=== PATIENT | male | born 1935 | race Caucasian/White ===

== ENCOUNTER 2024-05-03 02:17 | Inpatient (IN) | payer MEDICARE, OTHER, SELFPAY ==
[2024-05-02 21:58] VITALS: BP 167/78; BMI 32.9
[2024-05-02 22:25] LABS: % Basophils 0.3 % (0-2); % Eosinophils 0.1 % (0-6); % Immature Granulocytes 0.8 % (0-0.5); % Lymphocytes 4.7 % (20.5-51.1); % Monocytes 8.1 % (1.7-9.3); Absolute Basophils 0.1 10^3/uL (0-0.2); Absolute Immature Granulocytes 0.2 10^3/uL (0-0.05); Absolute Lymphocytes 0.9 10^3/uL (1.2-3.4); Absolute Monocytes 1.5 10^3/uL (0.1-0.6); Absolute Neutrophils 15.7 10^3/uL (1.4-6.5); Hematocrit 41.6 % (39.0-52.0); Hemoglobin 13.7 g/dL (13.0-18.0); Mean Corp Hgb Conc. 32.9 g/dL (33.0-37.0); Mean Corpuscular Hgb 27.9 pg (27.0-31.0); Mean Corpuscular Volume 84.7 fL (80.0-94.0); Mean Platelet Volume 13.2 fL (7.4-10.4); Nucleated Red Blood Cells % 0 % (-); Platelet Count 180 10^3/uL (130-400); Red Blood Cell Count 4.91 10^6/uL (4.70-6.10); Red Cell Dist. Width 15.5 % (11.5-14.5); White Blood Cell Count 18.2 10^3/uL (4.8-10.8)
[2024-05-02 22:35] LABS: ALT (SGPT) 21 U/L (0-50); AST (SGOT) 23 U/L (17-59); Albumin 3.8 g/dl (3.5-5.0); Alkaline Phosphatase 76 U/L (38-126); Blood Urea Nitrogen 34 mg/dl (9-20); Calcium 9.4 mg/dl (8.4-10.2); Carbon Dioxide 17 mmol/L (22-30); Chloride 106 mmol/L (98-107); Estimated Creatinine Clearance 21 ml/min; Glucose 155 mg/dl (70-99); Potassium 4.8 mmol/L (3.5-5.1); Sodium 138 mmol/L (135-145); Total Bilirubin 1.3 mg/dl (0.2-1.3); Total Protein 6.6 g/dl (6.3-8.2); eGFR 21.17
[2024-05-02 22:43] LABS: NT-proBNP 4540 pg/ml; Troponin I 0.028 ng/ml
--- NOTE | 2024-05-02 22:56 | ED.GENMED ---
History of Present Illness
General
Chief Complaint: Weakness
Time Seen by Provider: 05/02/24 22:04
History of Present Illness
History of Present Illness:
88-year-old male with history of diabetes, hypertension, chronic back pain, retinal issues presenting for generalized weakness. Patient reports prior to arrival he was getting ready for bed in the bathroom. His legs gave out and he fell onto his
knees. Denies loss of consciousness. He had difficulty getting up. Medics were called. When medics arrived, did have an episode of vomiting. Patient notes prior to this episode was in his usual state of health. Does report a mild cough.
Denies any recent fever or sick contacts. Denies chest pain or difficulty breathing. Denies any present abdominal pain. Did have 1 episode of diarrhea. Denies any focal weakness to his legs or arms. Denies additional acute medical complaints
Past History
Past History
ED Past Medical History: Other (Degenerative joint disease, dvt)
Social History
Tobacco: Non-smoker
Alcohol: None
Drug: None
Phy Exam
Physical Exam
Physical Exam:
General: Dry mucous membranes
HEENT: protecting airway, injected sclera to the right eye, however notes chronic from intra ophthalmic injections
Neck: appears supple
CV: Normal heart rate, regular rhythm
Resp: tachypnea with increased work of breathing, lungs clear to auscultation
Abd: Mild distention without any tenderness to palpation
Extremities: No deformities, no swelling, no erythema
Neuro: alert, no focal neurologic deficit
: deferred
Rectal: deferred
Psych: Normal affect
Skin: Intact
Course
Orders/Labs/Results
Orders:
Orders
05/02/24 21:57
Electrocardiogram (*1) Urgent
Reason for Study: Other
Other Reason for Exam: Respiratory Distress
Cardiac Monitoring- Treatment ONCE
EKG- Treatment ONCE
IV Insert/Care/Rem.- Treatment PRN
CR Chest - 2 Views Urgent
Comment:
Reason For Exam: respiratory distress
O2 Therapy [RESP] Urgent
Titrate/Wean O2 to maintain O2 sat greater than (%): 93
Special Instructions: TO MAINTAIN CONTINUOUS O2 SATS >/= 93%
Pulse Ox/cont/shift [RESP] Urgent
Quantity: 1
Special Instructions: continuous pulse ox
05/02/24 22:09
Complete Blood Count/With Diff Urgent
Comprehensive Metabolic Panel Urgent
NT-proBNP Urgent
Troponin I Urgent
05/02/24 22:21
Urinalysis Reflex To Culture Urgent
05/02/24 22:56
0.9% Sodium Chloride 500 ml [Nss] 500 ml IV BOLUS
05/02/24 23:20
COVID-19 Antigen Urgent
Source: Nasal Swab
Lactic Acid Q4H
Comment: CANCEL 2nd LACTIC ACID IF 1st LACTIC ACID IS LESS THAN 2
05/02/24 23:21
Blood Culture Q30M
FELIPE Source: Blood/Venous
Specimen Description:
Blood Culture Q30M
FELIPE Source: Blood/Venous
Specimen Description:
Influenza A+B Rapid Molecular Urgent
FELIPE Source: Nasal Swab
Specimen Description:
05/03/24 03:00
Lactic Acid Q4H
Comment: CANCEL 2nd LACTIC ACID IF 1st LACTIC ACID IS LESS THAN 2
Abnormal Lab Results
05/02/24
22:09
WBC 18.2 H 10^3/uL
(4.8-10.8)
MCHC 32.9 L g/dL
(33.0-37.0)
RDW 15.5 H %
(11.5-14.5)
MPV 13.2 H fL
(7.4-10.4)
Abs Immat Gran (auto) 0.2 H 10^3/uL
(0-0.05)
Absolute Neuts (auto) 15.7 H 10^3/uL
(1.4-6.5)
Absolute Lymphs (auto) 0.9 L 10^3/uL
(1.2-3.4)
Absolute Monos (auto) 1.5 H 10^3/uL
(0.1-0.6)
Immature Gran % 0.8 H %
(0-0.5)
Neutrophils % 86.0 H %
(42.2-75.2)
Lymphocytes % 4.7 L %
(20.5-51.1)
Carbon Dioxide 17 L mmol/L
(22-30)
BUN 34 H mg/dl
(9-20)
Creatinine 2.8 H mg/dL
(0.7-1.3)
Glucose 155 H mg/dl
(70-99)
05/02/24 22:09
05/02/24 22:09
Vital Signs
Initial and Last Documented VS:
Initial Vital Signs
Temp Pulse Resp BP Pulse Ox
99.7 F 73 40 167/78 90
05/02/24 21:58 05/02/24 21:58 05/02/24 21:58 05/02/24 21:58 05/02/24 21:58
Last Documented Vital Signs
Temp Pulse Resp BP Pulse Ox
99.7 F 71 39 167/78 95
05/02/24 21:58 05/02/24 22:30 05/02/24 22:30 05/02/24 21:58 05/02/24 22:53
MDM/Problems Addressed
MDM/Problems Addressed:
88-year-old male with history of hypertension, diabetes, chronic back pain presenting for generalized weakness and fall. Vital signs on arrival significant for tachypnea and low-grade fever.
On exam, patient is generally unwell in appearance, tachypneic, however denying difficulty breathing. Patient reports that he was feeling well today, and then his legs gave out in the bathroom prior to arrival. Denies head injury. Vital signs on
arrival are concerning for possible infectious pathology. Active source being pulmonary, does note cough and does have increased work of breathing. Viral versus bacterial infection is a consideration. Will obtain viral swabs and chest x-ray
imaging. Patient does also note some dysuria, so will obtain urinalysis. EKG obtained, nonischemic, no arrhythmia. Will check electrolyte panel to evaluate for signs of dehydration or electrolyte derangement. No focal neurologic deficits without
concern for central neurologic process at this time.
23:00- Patient with leukocytosis, now meeting SIRS. Will obtain lactic acid and blood cultures. Starting gentle fluid hydration, BNP of almost 5000. Pending chest x-ray imaging.
00:10 -chest x-ray without obvious infiltrate. COVID and flu is negative. Lactic acid within normal limits, at this time without concern for severe sepsis or septic shock. Will continue fluids clinically indicated. Clinically, concern for
pneumonia in the setting of low-grade fever, increased work of breathing, leukocytosis. Will start on antibiotics. Plan for admission.
*EKG
Interpreted by ED Provider?: Yes
EKG Intrepretation Date: 05/02/24
EKG Intrepretation Time: 23:00
Interpretation: normal
Heart Rate: 71
Rate: normal
Rhythm: sinus
[place]: normal axis
Interval: long QT (484)
QRS Pattern: normal QRS
Ischemia: no ischemia
*Critical Care Note
Total Time (30-74mins, 75-104mins- exclusive of procedures): Not Applicable
ED Attending Note
-
Portions of this chart may have been created with voice recognition software.� Occasional wrong word or��sound alike� substitutions may have occurred due to the inherent limitations of voice recognition software.
Discharge Plan
Departure
Prescriptions:
No Action
metformin 500 MG tablet
500 mg PO BID
terazosin 5 MG capsule
5 mg PO HS
glyburide 5 MG tablet
10 mg PO BID
potassium chloride 10 mEq Tablet Extended Release
30 meq PO BID
aspirin 81 mg Tablet,Delayed Release (Dr/Ec)
81 mg PO HS
sotalol 120 MG tablet
120 mg PO BID
omeprazole 20 MG capsule,delayed release(DR/EC)
20 mg PO DAILY
duloxetine 30 mg Capsule,Delayed Release(Dr/Ec)
30 mg PO HS
cholecalciferol (vitamin D3) [Vitamin D3] 50 mcg (2,000 unit) Tablet
50 mcg PO DAILY
atorvastatin 20 mg Tablet
20 mg PO HS
alprazolam 1 mg Tablet
1 mg PO HSPRN PRN (Reason: anxiety/sleep)
amlodipine 2.5 mg Tablet
2.5 mg PO BID
temazepam 30 mg Capsule
30 mg PO HSPRN PRN (Reason: anxiety/sleep)
losartan 100 mg Tablet
100 mg PO DAILY
PreserVision AREDS 4,296 mcg-226 mg-90 mg Capsule
1 cap PO BID
omega 5-sdo-qsl-fish oil [Fish Oil] 1,200 (144-216) mg Capsule
1 cap PO HS
Referrals:
Jarrell Travis MD [Family Provider] -
Interventions
Interventions:
*Risk Screen - Suicide Last Done: 05/02/24 21:58
*General Assessment Last Done: 05/02/24 21:58
*Neglect/Abuse Screening Last Done: 05/02/24 21:58
ED- Fall Risk Assessment Last Done: 05/02/24 22:54
*ED COVID-19 Vaccine History Last Done: 05/02/24 21:58
ED- Cardiac Assessment Last Done: 05/02/24 22:54
ED- Neurological Assessment Last Done: 05/02/24 22:54
ED- Pulmonary Assessment Last Done: 05/02/24 22:53
Discharge Date and Time
Print Language: AZERI
[2024-05-02] MEDS: NSS 500 IV (23:21)
[2024-05-02 23:22] VITALS: BP 160/75
[2024-05-02 23:45] LABS: Lactic Acid 1.9 mmol/L (0.7-2.0)
[2024-05-02 23:55] LABS: COVID-19 Antigen Negative (Negative)
[2024-05-03] VITALS (18 sets, daily range): BP systolic 130–149; BP diastolic 59–98; PULSE 2–97; O2SAT 92; BMI 30.9
[2024-05-03] MEDS: VIBRAMYCIN 100 MG PO ×3 (01:04→21:01)
[2024-05-03] MEDS: ROCEPHIN 1000 MG IV ×2 (01:04→23:38)
--- NOTE | 2024-05-03 01:11 | HPS.HSE ---
Family Physician
-
Family Physician: Jarrell Travis
Chief Complaint
-
Fall and weakness
History of Present Illness
This is a 88-year-old who has a past medical history significant for kri-pdtywwo-oqydoqwit diabetes, hypertension, GERD, BPH presenting to the emergency department with fall and weakness and found to have significant wheezing and shortness of breath.
Patient tells me that he came to the emergency department because he fell while transitioning to the bed this evening. The patient reported that upon falling he was not able to get up and he was brought to the emergency department. He has been
very weak lately. He is unable to tell me for how long.
When examining the patient he did appear to have very high work of breathing and was tachypneic to the high 20s and 30s. Equal he audible wheezes in the room. Patient states that he has been having dyspnea on exertion for some time now. However
family stated that the difficulty with breathing started after a fall today.
He reports history of nonproductive cough. Denies known history of asthma. Denies known history of COPD, did smoke for 20 years but quit several years ago. Patient denies any history of CHF. He denies having any chest pain. He has no known sick
contacts and no recent travel. 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
In the emergency department he was hypertensive with a blood pressure of 167/78, temp was 99.7, he was tachypneic to the 30s, pulse was 71. ECG shows normal sinus rhythm without any acute ST or T wave changes. Troponin was negative. BNP was over
4000. Chest x-ray shows no acute infiltrates. COVID test was negative. Influenza was negative. He had a white count of 15,000, CBC was otherwise unremarkable. Chemistries notable for creatinine of 2.8 which is up from 1.22 years ago. Bicarb
was 17 electrolytes otherwise unremarkable. U/A was positive for LE, WBC and bacteria.
Medical History
Past Medical History
Past Medical History: Reports HTN, Hypercholesterolemia and NIDDM
Additional Past Medical History:
BPH
Past Surgical History: Reports Other
Social History
Tobacco: Former Smoker
Alcohol: None
Drug: None
Family History
Family History: Not pertinent
Allergies / Home Medications
Allergies reflects when Allergies were last updated in [facility].
Home Medications with original date entered in [facility]
Allergy/Medication List:
Allergies
Allergy/AdvReac Type Severity Reaction Status Date / Time
No Known Allergies Allergy Verified 05/02/24 22:08
Home Medications
aspirin 81 mg tablet,delayed release 81 mg PO HS 08/26/21
cholecalciferol (vitamin D3) 50 mcg (2,000 unit) tablet (Vitamin D3) 50 mcg PO DAILY 08/26/21
duloxetine 30 mg capsule,delayed release 30 mg PO HS 08/26/21
glyburide 5 mg tablet 10 mg PO BID 08/26/21
metformin 500 mg tablet 500 mg PO BID 08/26/21
omeprazole 20 mg capsule,delayed release 20 mg PO DAILY 08/26/21
potassium chloride 10 mEq tablet,extended release 30 meq PO BID 08/26/21
sotalol 120 mg tablet 120 mg PO BID 08/26/21
terazosin 5 mg capsule 5 mg PO HS 08/26/21
alprazolam 1 mg tablet 1 mg PO HSPRN PRN anxiety/sleep 05/02/24
amlodipine 2.5 mg tablet 2.5 mg PO BID 05/02/24
atorvastatin 20 mg tablet 20 mg PO HS 05/02/24
losartan 100 mg tablet 100 mg PO DAILY 05/02/24
omega 1-oiy-hdc-fish oil 1,200 mg (144 mg-216 mg) capsule (Fish Oil) 1 cap PO HS 05/02/24
temazepam 30 mg capsule 30 mg PO HSPRN PRN anxiety/sleep 05/02/24
vitamins A,C,A-mpht-itsxao 4,296 mcg-226 mg-90 mg capsule (PreserVision AREDS) 1 cap PO BID 05/02/24
Review of Systems
-
History Source: Patient
Constitutional: Reports No Symptoms
EENT: Reports No Symptoms
Respiratory: Reports Trouble Breathing
Cardiac: Reports No Symptoms
Abdomen/GI: Reports No Symptoms
: Reports No Symptoms
Musculoskeletal: Reports No Symptoms
Skin: Reports No Symptoms
Neurological: Reports No Symptoms
Endocrine: Reports No Symptoms
Hematologic/Lymphatic: Reports No Symptoms
Psych: Reports No Symptoms
Physical Exam
Vital Signs
Vital Signs
Temp Pulse Resp BP Pulse Ox
99.7 F 71 39 167/78 95
05/02/24 21:58 05/02/24 22:30 05/02/24 22:30 05/02/24 21:58 05/02/24 22:53
Physical Exam
General: Well Developed, Well Nourished and Respiratory Distress
HEENT: NormoCephalic, Anicteric, Moist mucous membranes and Atraumatic
Respiratory: Wheezes and Accessory Resp Muscle Use
Cardiac: S1/S2 and Regular Rhythm
Breast: Deferred by me
GI: Soft, Normal Bowel Sounds and Distended
Rectal: Deferred by Provider
Genito-urinary: Deferred by me
Musculoskeletal: No Clubbing, No Cyanosis, Edema, Left Lower Extremity (trace) and Edema, Right Lower Extremity (trace)
Skin: Warm
Neuro: AO x 3
Hematologic/Lymphatic: No Lymphadenopathy
Psych: Calm
Laboratory Results
-
05/02/24 22:09
05/02/24 22:09
Laboratory Results
Lactic Acid Cancelled 05/03/24 03:00
Total Bilirubin 1.3 mg/dl (0.2-1.3) 05/02/24 22:09
AST 23 U/L (17-59) 05/02/24 22:09
ALT 21 U/L (0-50) 05/02/24 22:09
Alkaline Phosphatase 76 U/L (38-126) 05/02/24 22:09
Troponin I 0.028 ng/ml 05/02/24 22:09
Data Reviewed
-
Diagnostic Radiology: Image Personally Visualized and interpreted
Medical Tests (Nuc Med, Echo, EKG etc): Image Personally Visualized and interpreted
Lab Data: Labs Reviewed by me
Old Records: Reviewed
Impression/Plan
-
IMPRESSION:
88 y.o male with h/o hypertension presenting to ED after a fall at home. Found to be weak and unable to get up. Here in ED has marked wheezing and respiratory distress without hypoxia. Afebrile, temp 99.7. Xray shows no acute infiltrates. COVID
and Flu negative. Leukocytosis to 18.2. LUIS A on CKd Cr 2.8 up from 1.2 2 years ago. Denies h/o asthma or COPD but former smoker. The wheezing suggests asthma/copd which would be c/w an infectious bronchitis causing weakness. However patient has
been having dyspnea on exertion, has trace ankle edema and elevated BNP so could be cardiac wheeze as well.
PLAN:
1. SOB/Wheezing - Acute bronchitis suspected with COPD exacerbation. Very high work of breathing though not hypoxic.
- admit to imu as may need bipap to reduce wob
- start duonebs now
- then duonebs RTC and albuterol prn wheezing q 2 hours
- solumedrol 125mg x 1 then 40 q 6
- ceftriaxone/doxycycline
- check procalcitionin
- pulmonary consult.
2. UTI - Patient with h/o bph, did not endorse urinary symptoms. However has + u/a
- blood and urine cultures sent
3. LUIS A - Unknown recent baseline but prior creatinine in 2021 was1.2, now 2.8. Straight cath without obvious evidence of urinary retention.
- hold losartan
- reduced sotalol to daily given gfr
- hold metformin
- kidney u/s
- holding iv fluids for now due to concern for chf
- nephrology consult
4. Possible CHF - BNP elevated, ? cardiac wheeze.
- will hold off diuresis pending effect of nebs/steroids given possible luis a
- get echo in am
- no history on indication for sotalol (afib vs vt or svt), obtain more information in am,renal dosing at 120 daily
- cardiology consult
3.HTN
- continue amlodipine
- hold losartan for now
- contnue terazosin
4. DM II
- hold metformin
- continue glipizide and insulin sliding scale
DVT PPX - heparin sq
Code status - full code
--- NOTE | 2024-05-03 01:20 | EDRN ---
Patient data communications software consultant gusman, go in room and patient at end of bed needing to urinate, patient very weak with standing and incredibly short of breath, patient un able to go, back in bed and pulled up in bed, hospitalist at bedside as well with patient
working on admission, informed patient no more getting out of bed as he is too short of breath and too weak.
[2024-05-03] MEDS: VENTOLIN NEBULES 2.5 MG INH ×2 (01:22→01:35)
[2024-05-03] MEDS: SOLU-MEDROL PF 125 MG IV (01:35)
--- NOTE | 2024-05-03 02:20 | EDRN ---
Report to LUCILLE Guzman
[2024-05-03 02:24] LABS: Procalcitonin 0.35 ng/ml (0.0-0.25)
[2024-05-03] MEDS: LASIX 60 MG IV (03:12)
[2024-05-03 03:22] LABS: Urine Albumin 3+ (Neg - Trace); Urine Bilirubin Negative (Negative); Urine Character Slightly Cloudy (Clear); Urine Color Yellow; Urine Glucose Trace (Negative); Urine Ketone Negative (Negative); Urine Leukocyte Trace (Negative); Urine Nitrite Negative (Negative); Urine Occult Blood 1+ (Negative); Urine Urobilinogen Negative (Neg - 1+)
[2024-05-03 03:37] LABS: Urine Granular Cast 0-2 /LPF (0); Urine Squamous Cell 0-2 /LPF (Few)
[2024-05-03 03:38] LABS: Urine Amorphous Seen; Urine Bacteria Many (Negative); Urine White Cell 30-40 /HPF (0-5)
[2024-05-03 03:45] LABS: B.E. -5.4 mmol/L; HCO3 19.2 mmol/L (21-28); O2 Saturation % 96.1 % (94-98); PCO2 34 mmHg (35-48); PO2 75 mmHg (83-108); pH 7.36 (7.35-7.45)
[2024-05-03 04:07] LABS: O2 Therapy 28%
[2024-05-03] MEDS: DUONEB 3 ML INH ×4 (07:16→19:33)
[2024-05-03] MEDS: PULMICORT 0.5 MG INH ×2 (07:16→19:33)
--- NOTE | 2024-05-03 08:02 | CON.PUL ---
Consultation
Consultation Request
Date/Time Consultation Requested: 05/03/2024-7:30 AM
Date/Time Consultation Performed: 05/03/2024-8 AM
Requesting Provider: Hospitalist
Performing Provider: Dr. Phillip
Reason for Consultation: Shortness of breath/COPD
Medical History
-
Chief Complaint: Shortness of breath
History of Present Illness:
88-year-old male former smoking [place] immigrant who has a history of hypertension, hyperlipidemia diabetes and possible COPD presented with shortness of breath, hypertension, tachypnea, leukocytosis felt to have COPD exacerbation-pulmonary
consulted for potential COPD 05/03/2024. Reviewed with ED nursing. Patient received some Lasix and was improved. He continues to be on supplemental oxygen. He currently denies any shortness of breath at rest, chest pain, chest tightness, pleurisy,
chest congestion, productive cough, abdominal pain, leg swelling or focal weakness.
Past Medical History
Past Medical History: None (Hypertension. Hyperlipidemia. Diabetes. Obesity.)
Social History
Tobacco: Former Smoker ([id number] quit 1979)
Alcohol: None
Drug: None
Occupational Exposures: No known asbestos exposure
Environmental Exposures: No known tuberculosis exposure
Family History
Family History: Reviewed & Not Pertinent
Allergies / Home Medications
Allergies
Allergy/AdvReac Type Severity Reaction Status Date / Time
No Known Allergies Allergy Verified 05/02/24 22:08
Home Medications
�Medication �Instructions �Recorded �Confirmed �Last Taken �Type
aspirin 81 mg tablet,delayed 81 mg PO HS 08/26/21 05/02/24 Unknown History
release
cholecalciferol (vitamin D3) 50 50 mcg PO DAILY 08/26/21 05/02/24 Unknown History
mcg (2,000 unit) tablet (Vitamin
D3)
duloxetine 30 mg capsule,delayed 30 mg PO HS 08/26/21 05/02/24 Unknown History
release
glyburide 5 mg tablet 10 mg PO BID 08/26/21 05/02/24 Unknown History
metformin 500 mg tablet 500 mg PO BID 08/26/21 05/02/24 Unknown History
omeprazole 20 mg capsule,delayed 20 mg PO DAILY 08/26/21 05/02/24 Unknown History
release
potassium chloride 10 mEq 30 meq PO BID 08/26/21 05/02/24 Unknown History
tablet,extended release
sotalol 120 mg tablet 120 mg PO BID 08/26/21 05/02/24 Unknown History
terazosin 5 mg capsule 5 mg PO HS 08/26/21 05/02/24 Unknown History
alprazolam 1 mg tablet 1 mg PO HSPRN PRN anxiety/sleep 05/02/24 05/02/24 Unknown History
amlodipine 2.5 mg tablet 2.5 mg PO BID 05/02/24 05/02/24 Unknown History
atorvastatin 20 mg tablet 20 mg PO HS 05/02/24 05/02/24 Unknown History
losartan 100 mg tablet 100 mg PO DAILY 05/02/24 05/02/24 Unknown History
omega 8-fng-hpm-fish oil 1,200 mg 1 cap PO HS 05/02/24 05/02/24 Unknown History
(144 mg-216 mg) capsule (Fish Oil)
temazepam 30 mg capsule 30 mg PO HSPRN PRN anxiety/sleep 05/02/24 05/02/24 Unknown History
vitamins A,C,L-nosw-tyirrl 4,296 1 cap PO BID 05/02/24 05/02/24 Unknown History
mcg-226 mg-90 mg capsule
(PreserVision AREDS)
Review of Systems
-
Unable to Obtain full review of systems at this time due to: Other (Per HPI)
Vitals / Labs / Diagnostic Testing
Vital Signs
Temp Pulse Resp BP Pulse Ox
100.0 F 71 18 142/88 98
05/03/24 01:45 05/03/24 07:20 05/03/24 07:20 05/03/24 06:00 05/03/24 07:20
Lab Data
05/02/24 22:09
Laboratory Results
05/03/24
03:35
pH 7.36
pCO2 34 L
pO2 75 L
HCO3 19.2 L
O2 Delivery Level 28%
Microbiology
05/02/24 23:21 Nasal Swab Influenza Types A & B (THIERRY) - Final
Negative for Influenza A & B, NAAT
Negative results must be combined with clinical observations
and patient history.
Nucleic Acid Amplification test (NAAT)performed on the
[employer] platform.
Diagnostic Testing:
Physical Exam
-
Exam:
Well-nourished and well-developed in no apparent distress
HEENT-atraumatic, normocephalic
Neck-supple, no JVD, no bruit
Heart-regular rate and rhythm-no murmurs, rubs or gallops
Chest with diminished breath sounds, mildly prolonged expiratory time, rare basilar crackle right greater than left and few forced wheezes
Back-no tenderness
Abdomen-soft, nontender, nondistended, no hepatosplenomegaly
Extremities-no cyanosis, clubbing, edema and good peripheral pulses
Integument-intact, no rashes, lesions or ecchymosis
Neurology-alert and oriented, nonfocal motor and sensory exam
Assessment
-
88-year-old male former smoking [place] immigrant who has a history of hypertension, hyperlipidemia diabetes and possible COPD presented with shortness of breath, hypertension, tachypnea, leukocytosis felt to have COPD exacerbation-pulmonary
consulted for potential COPD 05/03/2024.
COPD suspected with acute exacerbation
Bronchitis
UTI
LUIS A
Suspected CHF-EF unknown
Leukocytosis
Hyperglycemia
Conditions present prior to admission:
Hypertension.
Hyperlipidemia.
Diabetes.
Obesity.
Plan
Acute decompensation likely a combination of COPD and possibly CHF
Supplemental oxygen as needed
Aspiration precautions
Decadron 6 mg given in the ED-observe off steroids
DuoNebs
Mucolytic's
Check cultures
Empiric antibiotics-Rocephin and doxycycline initiated
Diuresis as tolerated
Monitor renal function, electrolytes, intake/output, lower extremity edema and weight
Replace electrolytes as needed
Check echocardiogram
Nephrology consultation pending
Monitor blood sugar
Insulin supplementation as needed
DVT prophylaxis-on subcu heparin
GI prophylaxis-on pantoprazole
Nutrition
Early mobilization
At risk for obstructive sleep apnea-consider workup
Reviewed with nursing
Diagnostic data:
Chest x-ray 05/02/2024-mild cardiomegaly, mild subpleural subsegmental atelectasis at the lower lobes
Data Reviewed
-
EKG: Report reviewed by me
Radiology: Image personally visualized and interpreted and Report reviewed by me
Medical Tests (Nuc Med, Echo etc): Report reviewed by me
Labs: Labs reviewed by me
Old Records: Reviewed
Total Time Spent with Patient (in minutes): 55
[2024-05-03 09:54] LABS: Glucose - Point of Care 187 mg/dl (70-99)
[2024-05-03] MEDS: NOVOLOG FLEXPEN-LOW RESISTANCE 1 UNITS SC (10:20)
[2024-05-03] MEDS: HEPARIN 5000 UNITS SC ×3 (10:20→23:38)
[2024-05-03] MEDS: MICRONASE 10 MG PO (10:21)
[2024-05-03] MEDS: MUCINEX 600 MG PO ×2 (10:21→21:01)
[2024-05-03] MEDS: BETAPACE 120 MG PO (10:21)
[2024-05-03] MEDS: PROTONIX 40 MG PO (10:21)
[2024-05-03] MEDS: NORVASC 2.5 MG PO ×2 (10:24→21:01)
[2024-05-03 12:29] LABS: Blood Urea Nitrogen 44 mg/dl (9-20); Calcium 8.9 mg/dl (8.4-10.2); Carbon Dioxide 18 mmol/L (22-30); Chloride 105 mmol/L (98-107); Estimated Creatinine Clearance 19 ml/min; Glucose 258 mg/dl (70-99); Potassium 5.2 mmol/L (3.5-5.1); Sodium 137 mmol/L (135-145); eGFR 18.74
[2024-05-03] MEDS: NOVOLOG FLEXPEN-LOW RESISTANCE 3 UNITS SC (13:19)
[2024-05-03] MEDS: LOKELMA 10 GRAM PO (14:04)
--- NOTE | 2024-05-03 16:48 | W.CON.NEPH ---
Consultation
-
Date/Time Consultation Requested: 05/03/24 0114
Date/Time Consultation Performed: 05/03/24 1700
Requesting Provider: Fabian Salas
Performing Provider: Malka Shaffer
Reason for Consultation: LUIS A
Medical History
-
Chief Complaint: fall and SOB
History of Present Illness:
88-year-old who is [place] immigrant with h/o HTN on Amlodipine, Losartan, BPH on Terazosin, Heart arrhythmia on Sotalol, HLD on statin, DM on metformn and glyburide, presenting to the emergency department on 05/02 with fall, no loss of consciousness
and found to have significant wheezing and shortness of breath. Patient reportedly had fallen while transitioning to the bed and was noted to have tachypneic and shortness of breath. Family brought him into the ER. He diagnosed with possible
bronchitis and also ?CHF. Started on abx, steroids and nebs. He also received lasix this am. Cr on admit was at 2.8 and repeat was at 3.1. Nephrology consulted to evaluate further.
He reports seeing nephrology at [facility] Dr. Siddiqi for CKD, does not recall creatinine or staging of the disease.
Reports no CP or sob currently, no fever or nausea or vomiting. No diarrhea or abdominal pain. no dysuria. No fever or chills.He denies use of NSAIDs or any new medications.
Past Medical History
HTN, Hypercholesterolemia, obesity, CKD, heart arrhythmia and NIDDM
Social History
Tobacco: Former Smoker (quit )
Alcohol: None
Drug: None
Personal:
Living: With Family
Employment: Retired ( worked as an manufacturing quality engineer)
Family History
no CKD
Family History: Not Pertinent
Allergies / Home Medications
Allergy/AdvReac Type Severity Reaction Status Date / Time
No Known Allergies Allergy Verified 05/02/24 22:08
�Medication �Instructions �Recorded �Confirmed �Type
aspirin 81 mg tablet,delayed 81 mg PO HS 08/26/21 05/02/24 History
release
cholecalciferol (vitamin D3) 50 50 mcg PO DAILY 08/26/21 05/02/24 History
mcg (2,000 unit) tablet (Vitamin
D3)
duloxetine 30 mg capsule,delayed 30 mg PO HS 08/26/21 05/02/24 History
release
glyburide 5 mg tablet 10 mg PO BID 08/26/21 05/02/24 History
metformin 500 mg tablet 500 mg PO BID 08/26/21 05/02/24 History
omeprazole 20 mg capsule,delayed 20 mg PO DAILY 08/26/21 05/02/24 History
release
potassium chloride 10 mEq 30 meq PO BID 08/26/21 05/02/24 History
tablet,extended release
sotalol 120 mg tablet 120 mg PO BID 08/26/21 05/02/24 History
terazosin 5 mg capsule 5 mg PO HS 08/26/21 05/02/24 History
alprazolam 1 mg tablet 1 mg PO HSPRN PRN anxiety/sleep 05/02/24 05/02/24 History
amlodipine 2.5 mg tablet 2.5 mg PO BID 05/02/24 05/02/24 History
atorvastatin 20 mg tablet 20 mg PO HS 05/02/24 05/02/24 History
losartan 100 mg tablet 100 mg PO DAILY 05/02/24 05/02/24 History
omega 4-jrk-oxz-fish oil 1,200 mg 1 cap PO HS 05/02/24 05/02/24 History
(144 mg-216 mg) capsule (Fish Oil)
temazepam 30 mg capsule 30 mg PO HSPRN PRN anxiety/sleep 05/02/24 05/02/24 History
vitamins A,C,T-pfbb-wmblcu 4,296 1 cap PO BID 05/02/24 05/02/24 History
mcg-226 mg-90 mg capsule
(PreserVision AREDS)
Review of Systems
-
All complete 12 point ROS have been inquired and found negative other than stated in HPI
Physical Exam
Vital Signs
Vital Signs
Temp Pulse Resp BP Pulse Ox
98.2 F 57 16 138/77 95
05/03/24 13:47 05/03/24 15:26 05/03/24 15:26 05/03/24 13:16 05/03/24 15:26
Lab Results
WBC 18.2 10^3/uL (4.8-10.8) H 05/02/24 22:09
RBC 4.91 10^6/uL (4.70-6.10) 05/02/24 22:09
Hgb 13.7 g/dL (13.0-18.0) 05/02/24 22:09
Hct 41.6 % (39.0-52.0) 05/02/24 22:09
Plt Count 180 10^3/uL (130-400) 05/02/24 22:09
Sodium 137 mmol/L (135-145) 05/03/24 11:43
Potassium 5.2 mmol/L (3.5-5.1) H 05/03/24 11:43
Chloride 105 mmol/L (98-107) 05/03/24 11:43
Carbon Dioxide 18 mmol/L (22-30) L 05/03/24 11:43
BUN 44 mg/dl (9-20) H 05/03/24 11:43
Creatinine 3.1 mg/dL (0.7-1.3) H 05/03/24 11:43
eGFR 18.74 05/03/24 11:43
Glucose 258 mg/dl (70-99) H 05/03/24 11:43
Calcium 8.9 mg/dl (8.4-10.2) 05/03/24 11:43
Rfi-J-Rqwdyzwnsjs Pept 4540 pg/ml 05/02/24 22:09
Albumin 3.8 g/dl (3.5-5.0) 05/02/24 22:09
echo:
CONCLUSIONS
Normal left ventricular size, wall thickness and systolic function. No regional
wall motion abnormalities are seen. LV ejection fraction is 60-65% by Heath's
method of discs. Diastolic function indeterminate.
Mitral valve opens normally. Mitral annular calcification. Mild mitral
regurgitation.
Mildly dilated left atrium. Indexed LA volume is mildly abnormal (35-41 mL/m2).
CXR:
IMPRESSION:
1. Mild cardiomegaly without radiographic evidence for acute pulmonary edema.
2. Mild subpleural subsegmental atelectasis/scarring in the lower lobes.
Physical Exam
General: Awake, Alert, Oriented, AOx3 and No Distress
HEENT: EOMI, Anicteric, Conjunctivae Clear, Dentition Intact, Facial Symmetry and No JVD
Respiratory: Normal Excursion, Nonlabored Respirations and Other ( decreased breath sounds)
Cardiac: S1/S2 and Regular Rate/Rhythm
Breast: Deferred by me
Abdomen: Soft, Nontender and Nondistended
Musculoskeletal: No Cyanosis and No Edema
Skin: No Rash
Neuro: Nonfocal/Grossly Intact
Psych: Mood/afflect pleasant, Insight/judgement good and Appropriate
Data Reviewed
-
Radiology: Report Reviewed by me and Discussed with Patient
Labs: Labs Reviewed by me and Discussed with Patient
Assessment/Plan
-
IMP:
Acute bronchitis suspected with COPD exacerbation
Possible CHF
LUIS A with CKD 3-follows with the nephrology at [facility] Dr Siddiqi
Mild hyperkalemia
Non gap met acidosis
UTI
h/o bph
HTN
DM II
Plan:
A/w fall, noted acute bronchitis and +/-CHF
LUIS A-last cr was at 1.2 in 2021, no recent labs available, cr now upto 3.1
UA -UTI sample, check renal US and follow bladder scan with h/o BPH, check U lytes
avoid nephrotoxins , dose meds renally -holding metformin and ARB
Mild hyperkalemia noted he is on potassium supplements, hold. Status post [facility]
obtain records from his nephrology
BP stable , back on home medications amlodipine
Pt on Sotalol with a history of heart arrhythmia, cardiology likely at [facility]
mild metabolic acidosis monitor, consider adding sodium bicarbonate if persists tomorrow
I am not sure sure if he has any CHF especially in the absence of JVD, normal EF though his BNP is elevated with LUIS A
Continue antibiotic per primary team and pulmonary
Discussed with the patient in detail
The emergent indication of dialysis, reviewed with the patient possibility of high risk if renal function worsens
[2024-05-03 18:45] LABS: Urine Sodium 20 mmol/L (30-90)
[2024-05-03 18:55] LABS: Glucose - Point of Care 72 mg/dl (70-99)
[2024-05-03] MEDS: NOVOLOG FLEXPEN-LOW RESISTANCE SC (19:00)
[2024-05-03] MEDS: MICRONASE PO (19:09)
[2024-05-03 20:29] LABS: Urine Protein > 2000 mg/dl (0-12)
[2024-05-03] MEDS: LIPITOR PO (21:01)
[2024-05-03] MEDS: ASPIR LOW (ENTERIC COATED) 81 MG PO (21:01)
[2024-05-03] MEDS: LIPITOR 20 MG PO (21:10)
--- NOTE | 2024-05-03 21:11 | EDRN ---
Patient given night time dose of atorvastatin. Patient states that he only takes 10mg, 20mg is ordered. Patient refused to take the full 20mg as ordered. This RN went over his med rec and told him that he did indeed take 20mg at home. Patient still
requested to only take 10mg, 10mg given.
[2024-05-03] MEDS: CYMBALTA DELAYED RELEASE 30 MG PO (23:34)
[2024-05-03] MEDS: HYTRIN 5 MG PO (23:34)
[2024-05-03] MEDS: STERILE WATER FOR INJECTION 10 ML IV (23:38)
[2024-05-04] VITALS (11 sets, daily range): BP systolic 113–157; BP diastolic 62–99
--- NOTE | 2024-05-04 01:18 | PTCARENOTE ---
Rec'd pt from previous RN. Pt alert, but confused at times, forgetful. Pt set off bed alarm, but was unable to tell this RN what he needed. Pt redirected into bed. Pt did not want to take SC heparin d/t not taking this medication at home. This RN
educated pt on purpose of medication and pt was ultimately agreeable to receiving this dose, but states he does not want to take it tomorrow. Pt took oral meds whole with water without complication. Frequently removes monitoring equipment, but
states he is agreeable to wearing it. Call gusman within reach. Bed alarm in place for pt safety.
[2024-05-04 05:47] LABS: Hematocrit 38.5 % (39.0-52.0); Hemoglobin 12.4 g/dL (13.0-18.0); Mean Corp Hgb Conc. 32.2 g/dL (33.0-37.0); Mean Corpuscular Hgb 27.8 pg (27.0-31.0); Mean Corpuscular Volume 86.3 fL (80.0-94.0); Mean Platelet Volume 12.6 fL (7.4-10.4); Platelet Count 168 10^3/uL (130-400); Red Blood Cell Count 4.46 10^6/uL (4.70-6.10); Red Cell Dist. Width 15.4 % (11.5-14.5); White Blood Cell Count 14.4 10^3/uL (4.8-10.8)
[2024-05-04 06:13] LABS: Blood Urea Nitrogen 55 mg/dl (9-20); Calcium 8.7 mg/dl (8.4-10.2); Carbon Dioxide 21 mmol/L (22-30); Chloride 107 mmol/L (98-107); Estimated Creatinine Clearance 17 ml/min; Glucose 47 mg/dl (70-99); Potassium 4.3 mmol/L (3.5-5.1); Sodium 138 mmol/L (135-145); eGFR 17.39
--- NOTE | 2024-05-04 06:37 | PTCARENOTE ---
Lab called to alert this RN that blood glucose in AM lab work was 47. Pt remains asymptomatic, presents same as previous. Juice given per JUN. Will recheck per protocol.
[2024-05-04 06:53] LABS: Glucose - Point of Care 54 mg/dl (70-99)
[2024-05-04 07:29] LABS: Glucose - Point of Care 95 mg/dl (70-99)
[2024-05-04] MEDS: PULMICORT 0.5 MG INH (07:31)
[2024-05-04] MEDS: DUONEB 3 ML INH ×3 (07:31→15:25)
[2024-05-04 08:25] LABS: Glucose - Point of Care 121 mg/dl (70-99)
[2024-05-04] MEDS: NOVOLOG FLEXPEN-LOW RESISTANCE SC ×3 (09:27→17:49)
[2024-05-04] MEDS: VIBRAMYCIN 100 MG PO (10:10)
[2024-05-04] MEDS: PROTONIX PO (10:10)
[2024-05-04] MEDS: HEPARIN SC ×2 (10:10→16:24)
[2024-05-04] MEDS: MUCINEX PO (10:10)
[2024-05-04] MEDS: NORVASC 2.5 MG PO ×2 (10:10→19:56)
--- NOTE | 2024-05-04 10:10 | W.PN.PUL.V3 ---
Today's Communication / Plan
-
Follow blood cultures
Antibiotics
Nebulizers
Observe off steroids
Wean FiO2
Nephrology following worsening renal function
Assessment
-
88-year-old male former smoking Irish immigrant who has a history of hypertension, hyperlipidemia diabetes and possible COPD presented with shortness of breath, hypertension, tachypnea, leukocytosis felt to have COPD exacerbation-pulmonary
consulted for potential COPD 05/03/2024.
COPD suspected with acute exacerbation
Bronchitis
Enterococcal bacteremia
UTI
LUIS A
Suspected CHF-EF unknown
Leukocytosis
Hyperglycemia
Conditions present prior to admission:
Hypertension.
Hyperlipidemia.
Diabetes.
Obesity.
Plan
Acute decompensation likely a combination of COPD and possibly CHF
Supplemental oxygen as needed-currently on 1 L - 97% saturation
Aspiration precautions
Decadron 6 mg given in the ED-observe off steroids
DuoNebs continue
Budesonide nebulizers continue
Mucolytic's
Cultures reviewed
Blood cultures 05/02/2024 2/2 positive for Enterococcus species
Influenza negative
Urine culture pending
Empiric antibiotics-Rocephin and doxycycline initiated
Diuresis if tolerated
Monitor renal function, electrolytes, intake/output, lower extremity edema and weight
Replace electrolytes as needed
Echocardiogram 05/03/2024-EF 60-65%, intermediate diastolic dysfunction
Nephrology consultation reviewed-correspondence reviewed-renal function worsening
Monitor blood sugar
Insulin supplementation as needed
DVT prophylaxis-on subcu heparin
GI prophylaxis-on pantoprazole
Nutrition
Increase activity
At risk for obstructive sleep apnea-consider workup as an outpatient
Reviewed with nursing
Diagnostic data:
Chest x-ray 05/02/2024-mild cardiomegaly, mild subpleural subsegmental atelectasis at the lower lobes
Subjective Data
-
Date of Service:
Date of Service: May 04, 2024
Chief Complaint: Pulmonary Follow Up and Dyspnea Follow Up
Subjective:
Feels a little better, mild shortness of breath, still on oxygen, no chest pain, productive cough or abdominal pain
Review of Systems
General: Other (Per HPI)
Objective Data
Data Reviewed
Vital Signs / I&O:
Vital Signs
Temp Pulse Resp BP Pulse Ox
97.3 F 68 18 124/70 95
05/04/24 07:53 05/04/24 07:34 05/04/24 07:34 05/04/24 04:00 05/04/24 07:34
Intake and Output
05/03/24 05/04/24 05/05/24
06:59 06:59 06:59
Output Total 150 / 150 200 / 200
Balance -150 / -150 -200 / -200
SaO2: 95
Nasal Cannula flow liters per minute: 1
Physical Exam
General: Respiratory Distress (n) and Comfortable
HEENT: Normocephalic and Anicteric
Cardiovascular: Regular Rhythm
Respiratory: Wheeze, Crackles, Rhonchi (n), Non-Labored Respirations, Accessory Resp Muscle Use (n) and Stridor
GI: Soft, Non Distended and Non Tender
Neurology: Awake, Alert and No Motor Deficits
Skin: Warm, Good Color, Cyanosis (n) and Jaundice (n)
Labs/Micro/Reports
Lab Data
05/04/24 05:25
05/04/24 05:25
Microbiology
05/02/24 23:21 Blood/Venous Blood Culture - Preliminary
Enterococcus species
05/02/24 23:21 Blood/Venous Gram Stain - Final
05/02/24 23:21 Blood/Venous Blood Culture - Preliminary
Enterococcus species
05/02/24 23:21 Blood/Venous Gram Stain - Preliminary
05/02/24 23:21 Nasal Swab Influenza Types A & B (THIERRY) - Final
Negative for Influenza A & B, NAAT
Negative results must be combined with clinical observations
and patient history.
Nucleic Acid Amplification test (NAAT)performed on the
[employer] platform.
[2024-05-04] MEDS: MICRONASE 10 MG PO (10:11)
[2024-05-04] MEDS: BETAPACE 120 MG PO (10:11)
--- NOTE | 2024-05-04 10:32 | PTCARENOTE ---
Pt extremely particular regarding medications. Refused Heparin injection despite being educated at length by this RN. Refused Heparin, Mucinex and Protonix. notified.
--- NOTE | 2024-05-04 11:06 | PTCARENOTE ---
Pt for 24/hr urine collection. Pt educated on test. Voiding in urinal but spills at times. Dr. Grant notified.
--- NOTE | 2024-05-04 11:07 | PTCARENOTE ---
Pt's at bedside. Requesting update from Dr Ray and requesting phone call to her daughter by Dr. Grant. Both physicians notified via TT.
[2024-05-04 11:31] LABS: Glucose - Point of Care 85 mg/dl (70-99)
[2024-05-04] MEDS: AMPICILLIN 108 MG IV ×2 (13:02→19:55)
--- NOTE | 2024-05-04 13:53 | W.PN.NEPH.PH ---
Addendum entered and electronically signed by Malka Grant MD 05/04/24 16:27:
spoke with daughter on phone and updated regarding renal status
reviewed potential etiologies
noted that he is bacteremia and UTI with enterococcus
await for serologies, hold ASA just in case if he needs biopsy
d/w primary too
repeat US if cr still increasing to f/u left hydro
Original Note:
Today's Communication / Plan
-
see plan
Assessment/Plan
-
IMP:
Acute bronchitis suspected with COPD exacerbation
Possible CHF
LUIS A with CKD 3-follows with the nephrology at [facility] Dr Siddiqi
Mild hyperkalemia
Non gap met acidosis
UTI
h/o bph
HTN
DM II
Plan:
A/w fall, noted acute bronchitis and +/-CHF
LUIS A-last cr was at 1.2 in 2021, no recent labs available, cr now upto 3.3
UA -UTI sample,borderline left hydro on renal US and follow bladder scan with h/o BPH, bladder scan 99cc
Urine lab shows significant proteinuria unable to calculate, check 24-hour urine protein, also send serologies, paraprotein workup
avoid nephrotoxins , dose meds renally -holding metformin and ARB
Mild hyperkalemia improving, holding potassium supplements
await records from his nephrology
BP stable , on home medications amlodipine
Pt on Sotalol with a history of heart arrhythmia, cardiology at [facility]
mild metabolic acidosis Improving,monitor
I am not sure sure if he has any CHF echo normal EF though his BNP is elevated with LUIS A
Continue antibiotic per primary team and pulmonary
Discussed with the patient in detail
no emergent indication of dialysis, reviewed with the patient possibility of high risk if renal function worsens
-
-
Date of Service: May 04, 2024
CC / HPI / ROS
-
Chief Complaint:
LUIS A
History of Present Illness:
cr up at 3.3, k better 4.3
BP stable, likely non oliguric
no fever, WBC 14k
Review of Systems:
No chest pain or shortness of breath at rest. No nausea or vomiting, denies any dysuria
Labs
-
Labs:
WBC 14.4 10^3/uL (4.8-10.8) H 05/04/24 05:25
RBC 4.46 10^6/uL (4.70-6.10) L 05/04/24 05:25
Hgb 12.4 g/dL (13.0-18.0) L 05/04/24 05:25
Hct 38.5 % (39.0-52.0) L 05/04/24 05:25
Plt Count 168 10^3/uL (130-400) 05/04/24 05:25
Sodium 138 mmol/L (135-145) 05/04/24 05:25
Potassium 4.3 mmol/L (3.5-5.1) 05/04/24 05:25
Chloride 107 mmol/L (98-107) 05/04/24 05:25
Carbon Dioxide 21 mmol/L (22-30) L 05/04/24 05:25
BUN 55 mg/dl (9-20) H 05/04/24 05:25
Creatinine 3.3 mg/dL (0.7-1.3) H 05/04/24 05:25
eGFR 17.39 05/04/24 05:25
Glucose 47 mg/dl (70-99) L* 05/04/24 05:25
Calcium 8.7 mg/dl (8.4-10.2) 05/04/24 05:25
Cuq-F-Rjkvgjknjcn Pept 4540 pg/ml 05/02/24 22:09
Albumin 3.8 g/dl (3.5-5.0) 05/02/24 22:09
Physical Exam
-
Vital Signs:
Vital Signs
Temp Pulse Resp BP Pulse Ox
97.2 F 57 18 132/67 95
05/04/24 11:25 05/04/24 11:17 05/04/24 11:17 05/04/24 10:42 05/04/24 11:17
Cardiovascular:: Regular rate and rhythm
Respiratory:: Bilateral: Coarse
Lung Excursion:: Normal
Abdomen:: Nontender and Soft
Extremity Edema:: None: Bilateral:
Cole Catheter: No
--- NOTE | 2024-05-04 14:51 | CM ---
Congolese/Sudanese speaking patient who fell at home. O2 1L. Receiving IV Abx. PT/OT recommend skilled rehab.
Met with patient and .
fluent in Sudanese and provided answers to assessment questions.
The patient resides with his in a 2nd floor condo with ramp at entrance and elevator access.
The patient has been assisted with ADLs such as showering by his .
He ambulates with his RW and 's supervision.
confirms that the patient fell in the bathroom on 05/02. Prior fall was 8 months ago.
DME - SPC, shower chair
No prior VN or SNF.
PCP - Jarrell Travis at [facility]
Pharmacy - [facility]
Discussed short term SNF for rehab with patient/ and they agree.
Provided SNF list and reviewed ratings for local SNFs.
wishes to discuss SNF choices with her daughter and decide on their SNF preferences.
* says she wants their daughter Brianne to be the primary contact for the MD ---> admitting updated and message sent to Dr Ray.
Plan follow up with daughter/ for SNF preferences.
--- NOTE | 2024-05-04 15:05 | W.PN.HOSP.TC ---
Today's Communication/Plan
-
Change antibiotic to Unasyn
Repeat blood culture in 24 to 48 hours
Follow-up urine studies
Follow-up renal function
Maintain on steroids
Assessment / Plan
Assessment / Plan
1. COPD exacerbation
Acute hypoxic respite insufficiency
-Chest x-ray showing cardiomegaly without evidence of pulmonary edema, some subsegmental atelectasis/scarring
-Maintain patient on IV steroid/inhaler therapy
-Pulmonology following and help appreciated
2. Enterococcal bacteremia and UTI
-Likely from urinary source although patient does not have any significant dysuria
-Urine culture also growing Enterococcus faecalis
-Start patient on IV Unasyn
-Echocardiogram did not show any vegetation
-Will check repeat blood culture for clearance
3. LUIS A
Nephrotic range proteinuria
-Renal/bladder ultrasound did not show any major structural changes
-Creatinine slowly uptrending
-24-hour urine collection with SPEP/UPEP/immunological workup sent as patient felt to have intrinsic renal disease
-Nephrology following and help appreciated
4. Type 2 diabetes mellitus
Episode of hypoglycemia
-Likely with Glyburide use
-Maintain on insulin sliding scale, blood sugar to be expected somewhat uncontrolled with steroid need
5. HF ruled out
-Echocardiogram showing preserved ejection fraction. No signs of significant diastolic dysfunction.
6. Essential HTN
- continue amlodipine
- hold losartan for now
- continue terazosin
DVT PPX - heparin sq
Code status - full code
Patient spouse/daughter updated over the phone. All questions answered.
Care plan discussed with nephrology as well
Total time spent 55 minutes
Anticipated Discharge: > 48 hours
Subjective/Interval History
-
Date of Service: May 04, 2024
patient having some dizziness
remains on o2 through NC
afebrile in night
Hypoglycemic in the morning
Objective Data
-
Labs:
Laboratory Results
05/04/24
05:25
WBC 14.4 H
Hgb 12.4 L
Hct 38.5 L
Plt Count 168
Sodium 138
Potassium 4.3
Chloride 107
Carbon Dioxide 21 L
BUN 55 H
Creatinine 3.3 H
Glucose 47 L*
Calcium 8.7
Vital Signs:
Vital Signs
Temp Pulse Resp BP Pulse Ox
97.2 F 57 18 132/67 95
05/04/24 11:25 05/04/24 11:17 05/04/24 11:17 05/04/24 10:42 05/04/24 11:17
I&O
05/03/24 05/04/24 05/05/24
06:59 06:59 06:59
Output Total 150 / 150 325 / 325
Balance -150 / -150 -325 / -325
Review of Systems
-
Respiratory: Reports Trouble Breathing
Cardiac: Reports No Symptoms
Abdomen/GI: Reports No Symptoms
Neuro: Reports Dizzy
Physical Exam
-
General: No Apparent Distress and Comfortable
HEENT: Oxygen
Respiratory: Wheezes
Cardiac: Regular Rhythm and S1/S2; Negative Murmur or Rub
GI: Soft, Nontender and Nondistended
Musculoskeletal: No Edema
Neuro: Awake, Alert, Oriented, No Motor Deficits and Nonfocal/Grossly Intact
Psych: Calm
[2024-05-04 17:55] LABS: Glucose - Point of Care 49 mg/dl (70-99)
[2024-05-04 18:18] LABS: Glucose - Point of Care 62 mg/dl (70-99)
[2024-05-04 18:38] LABS: Glucose - Point of Care 83 mg/dl (70-99)
--- NOTE | 2024-05-04 19:39 | PTCARENOTE ---
Previous RN alerted this RN that nephro would like us to hold pt's aspirin in case of biopsy, this RN verified that nephro note says to hold aspirin. No order is present to hold med. Dr. Grant contacted via TT to clarify and did certify that this
RN should hold 22:00 dose of aspirin for now, although pt is refusing SC heparin. This RN will reeducate pt on importance of heparin and hold 22:00 dose of aspirin.
[2024-05-04] MEDS: MUCINEX 600 MG PO (19:56)
[2024-05-04] MEDS: DUONEB INH (20:35)
[2024-05-04] MEDS: PULMICORT INH (20:35)
--- NOTE | 2024-05-04 20:40 | PTCARENOTE ---
Addendum entered by Christen Hunt 05/04/24 23:12:
Pt family arrived at bedside and encouraged compliance. Pt continues to refuse blood sugar checks, but is agreeable to drinking apple juice at this time. This RN will continue to encourage juice to ensure adequate sugars since we are unable to
assess d/t refusal. Pt agreeable to wearing O2 at family request, SaO2 94% on 2L. Pt agreeable to receiving heparin SC at this time. Pt's stated she will stay here overnight to assist with pt compliance. Pt agitated when RT, PCT enters the
room, gets overwhelmed easily. This RN will do pt care independently to limit staff contact and alleviate agitation. Call gusman within reach.
Original Note:
Pt refused 20:30 blood sugar check. Pt educated on importance of avoiding hypoglycemia. States 'this is too much. You can come to me during business hours' Reorientation attempted. 4oz juice offered to ensure adequate sugars, pt refused. Pt refusing
RT treatments. Removed O2. Satting 85-88% on RA, refuses this RN to replace O2 at this time. Again, reorientation attempted, importance of oxygenation explained to pt. Pt verbalizes understanding. Eventually places nasal cannula back on. SaO2
improved to 91%.
[2024-05-04] MEDS: LIPITOR PO (21:16)
[2024-05-04] MEDS: ASPIR LOW (ENTERIC COATED) PO (21:16)
[2024-05-04] MEDS: HYTRIN PO (21:20)
[2024-05-04] MEDS: CYMBALTA DELAYED RELEASE PO (21:20)
[2024-05-04] MEDS: HEPARIN 5000 UNITS SC (23:01)
[2024-05-05] VITALS (13 sets, daily range): BP systolic 114–177; BP diastolic 50–119
[2024-05-05] MEDS: DEXTROSE 50% SYRINGE 12.5 GRAMS IV (01:30)
--- NOTE | 2024-05-05 01:37 | PTCARENOTE ---
Pt awoke trying to get OOB, diaphoretic, c/o feeling hot, pulling gown off, O2 dropping to 70s on 2L. This RN pulled pt up in bed, increased O2 to 3L with improvement. Educated pt and family that pt may be feeling symptomatic of low blood sugar. Pt
agreeable to let this RN check blood glucose. BG result 47. Pt has been uncooperative throughout shift. IV dextrose given per JUN. Pt cooperative at this time, agreeable to let this RN recheck sugar in 15 minutes. PAROLE OFFICER notified of event.
[2024-05-05 01:39] LABS: Glucose - Point of Care 47 mg/dl (70-99)
[2024-05-05 02:07] LABS: Glucose - Point of Care 107 mg/dl (70-99)
[2024-05-05] MEDS: DUONEB 3 ML INH ×5 (04:01→20:11)
[2024-05-05 04:10] LABS: Glucose - Point of Care 91 mg/dl (70-99)
[2024-05-05] MEDS: AMPICILLIN 108 MG IV ×3 (04:41→19:58)
--- NOTE | 2024-05-05 04:44 | PTCARENOTE ---
Pt restless, pulling at clothing and monitoring equipment, slouched in bed. Episode of desat to 70s. This RN increased O2 to 6L and placed NRB, pulled pt up in bed. Blood glucose checked, 91. SaO2 recovered to 95%. Lung sounds very diminished. RT
gave breathing treatment with improvement of symptoms. SIPHON OPERATOR notified of episode. No new orders at this time.
[2024-05-05 05:11] LABS: Hematocrit 40.2 % (39.0-52.0); Hemoglobin 13.2 g/dL (13.0-18.0); Mean Corp Hgb Conc. 32.8 g/dL (33.0-37.0); Mean Corpuscular Volume 85.4 fL (80.0-94.0); Mean Platelet Volume 13.1 fL (7.4-10.4); Platelet Count 194 10^3/uL (130-400); Red Blood Cell Count 4.71 10^6/uL (4.70-6.10); Red Cell Dist. Width 14.9 % (11.5-14.5); White Blood Cell Count 13.6 10^3/uL (4.8-10.8)
[2024-05-05 05:36] LABS: Complement C3 141 mg/dl (88-165)
[2024-05-05 05:38] LABS: Blood Urea Nitrogen 54 mg/dl (9-20); Calcium 8.8 mg/dl (8.4-10.2); Carbon Dioxide 22 mmol/L (22-30); Chloride 105 mmol/L (98-107); Estimated Creatinine Clearance 19 ml/min; Glucose 85 mg/dl (70-99); Potassium 4.4 mmol/L (3.5-5.1); Sodium 140 mmol/L (135-145); eGFR 19.49
[2024-05-05] MEDS: PULMICORT 0.5 MG INH ×2 (07:24→20:11)
[2024-05-05 08:17] LABS: Glucose - Point of Care 68 mg/dl (70-99)
[2024-05-05 09:01] LABS: Glucose - Point of Care 94 mg/dl (70-99)
--- NOTE | 2024-05-05 10:08 | PN.CDI ---
CDI
- -
CDI:
Physician Documentation Request
Admit Date: 05/03/24 02:17
Dear Doctor Cory,
Please review the following and provide your response in the progress notes.
Clinical Indicators:
Pt admitted with LUIS A /UTI now Bacteremia
Progress note 05/04, ' Enterococcal bacteremia and UTI Likely from urinary source ...Urine culture also growing Enterococcus faecalis Start patient on IV Unasyn...'
On admission WBC 18.2, Respirations 51, Temp 100.0
Please clarify which of the following most accurately describes the status of the patient's infection:
Sepsis-POA
- Systemic manifestations of infection, with 2 or more SIRS criteria which include:
- Fever >100.4 degrees F or hypothermia < 96.8 degrees F
- Leukocytosis - WBC > 12,000 or leukopenia - WBC < 4,000 or > 10% bands
- Tachycardia > 90 beats per minute
- Tachypnea - RR > 20 breaths per minute or PaCO2 , 32mmHg
Source: Merck Manual 2013
UTI only , Without Systemic Illness
Other ( please specify)
Use of terms such as suspected, likely, concern for, or probable (associated with a specific diagnosis that is being evaluated, monitored, or treated as if it exists) are acceptable and can be coded in the inpatient setting, when documented at the
time of discharge.
Thank you,
Alina Velásquez RN
CDI Specialist
[facility]
Please use your independent medical judgment in providing your response.
[2024-05-05] MEDS: BETAPACE 120 MG PO (10:46)
[2024-05-05] MEDS: NORVASC 2.5 MG PO (10:46)
[2024-05-05] MEDS: NOVOLOG FLEXPEN-LOW RESISTANCE SC ×2 (10:47→16:53)
[2024-05-05] MEDS: HEPARIN 5000 UNITS SC ×2 (10:47→17:19)
[2024-05-05] MEDS: MUCINEX 600 MG PO ×2 (10:47→19:57)
--- NOTE | 2024-05-05 11:56 | W.PN.NEPH.PH ---
Today's Communication / Plan
-
see plan
Assessment/Plan
-
IMP:
Acute bronchitis suspected with COPD exacerbation
Possible CHF
LUIS A with CKD 3-follows with the nephrology at [facility] Dr Siddiqi
Mild hyperkalemia
Non gap met acidosis
UTI
h/o bph
HTN
DM II
Plan:
A/w fall, noted acute bronchitis and +/-CHF
LUIS A-last cr was at 1.2 in 2021, no recent labs available, cr peak at 3.3, today at 3
UA -UTI sample,borderline left hydro on renal US may need to repeat later
follow bladder scan with h/o BPH, bladder scan 99cc
Urine lab shows significant proteinuria unable to calculate, pending 24-hour urine protein, serologies, paraprotein workup
ASA held Day2 for possibility of K biopsy based on pending labs and renal function
avoid nephrotoxins , dose meds renally -holding metformin and ARB
k normal, cont to hold potassium supplements
await records from his nephrology
BP increasing trend, increase amlodipine to 5 BID
Pt on Sotalol with a history of heart arrhythmia, cardiology at [facility]
mild metabolic acidosis Improving,monitor
echo normal EF though his BNP is elevated with LUIS A, no diuresis
Continue antibiotic per primary team for enterococcus bacteremia, UTI-on Unasyn
Discussed with the patient and daughter on phone in detail
no emergent indication of dialysis, reviewed with the patient possibility of high risk if renal function worsens
-
-
Date of Service: May 05, 2024
CC / HPI / ROS
-
Chief Complaint:
LUIS A
History of Present Illness:
cr down to 3,
BP increasing trend, non oliguric
no fever, WBC 13.6k
Review of Systems:
No chest pain or shortness of breath at rest. No nausea or vomiting, denies any dysuria
Labs
-
Labs:
WBC 13.6 10^3/uL (4.8-10.8) H 05/05/24 04:36
RBC 4.71 10^6/uL (4.70-6.10) 05/05/24 04:36
Hgb 13.2 g/dL (13.0-18.0) 05/05/24 04:36
Hct 40.2 % (39.0-52.0) 05/05/24 04:36
Plt Count 194 10^3/uL (130-400) 05/05/24 04:36
Sodium 140 mmol/L (135-145) 05/05/24 04:36
Potassium 4.4 mmol/L (3.5-5.1) 05/05/24 04:36
Chloride 105 mmol/L (98-107) 05/05/24 04:36
Carbon Dioxide 22 mmol/L (22-30) 05/05/24 04:36
BUN 54 mg/dl (9-20) H 05/05/24 04:36
Creatinine 3.0 mg/dL (0.7-1.3) H 05/05/24 04:36
eGFR 19.49 05/05/24 04:36
Glucose 85 mg/dl (70-99) 05/05/24 04:36
Calcium 8.8 mg/dl (8.4-10.2) 05/05/24 04:36
Gkj-S-Ndrqfyinlkb Pept 4540 pg/ml 05/02/24 22:09
Albumin 3.8 g/dl (3.5-5.0) 05/02/24 22:09
Physical Exam
-
Vital Signs:
Vital Signs
Temp Pulse Resp BP Pulse Ox
98.5 F 82 14 166/92 94
05/05/24 07:35 05/05/24 11:25 05/05/24 11:25 05/05/24 06:00 05/05/24 07:26
Cardiovascular:: Regular rate and rhythm
Respiratory:: Bilateral: CTA
Lung Excursion:: Normal
Abdomen:: Nontender and Soft
Extremity Edema:: None: Bilateral: (trace)
Cole Catheter: No
[2024-05-05 12:30] LABS: 24 Hour Urine Total Volume 1100 ml
[2024-05-05 12:41] LABS: Glucose - Point of Care 152 mg/dl (70-99)
[2024-05-05 12:42] LABS: 24 Hour Urine Creatinine 1.162 gm/day (1.0-2.0)
[2024-05-05 12:52] LABS: Urine Protein 389 mg/dl (0-12)
[2024-05-05] MEDS: NOVOLOG FLEXPEN-LOW RESISTANCE 1 UNITS SC (13:00)
--- NOTE | 2024-05-05 14:27 | W.PN.PUL.V3 ---
Today's Communication / Plan
-
.
Attempt to wean oxygen.
Continue ampicillin.
Nebulizers.
And Decadron.
Reviewed with
Assessment
-
88-year-old male former smoking [place] immigrant who has a history of hypertension, hyperlipidemia diabetes and possible COPD presented with shortness of breath, hypertension, tachypnea, leukocytosis felt to have COPD exacerbation-pulmonary
consulted for potential COPD 05/03/2024.
COPD suspected with acute exacerbation
Bronchitis
Enterococcal bacteremia
UTI
LUIS A
Suspected CHF-EF unknown
Leukocytosis
Hyperglycemia
Conditions present prior to admission:
Hypertension.
Hyperlipidemia.
Diabetes.
Obesity.
Plan
Acute decompensation likely a combination of COPD and possibly CHF
Supplemental oxygen as needed-currently on . 4 L-93% saturation
Aspiration precautions
Decadron 6 mg given in the ED-observed subsequently off steroids-reinitiate with increased hypoxemia and some wheezing on exam
DuoNebs continue
Budesonide nebulizers continue
Mucolytic's.
Consider repeat chest x-ray if FiO2 requirements did not decrease
Cultures reviewed
Blood cultures 05/02/2024 2/2 positive for Enterococcus species
Influenza negative
Urine culture -Enterococcus
Empiric antibiotics-Rocephin and doxycycline initiated-changed to ampicillin
Diuresis if tolerated
Monitor renal function, electrolytes, intake/output, lower extremity edema and weight
Replace electrolytes as needed
Echocardiogram 05/03/2024-EF 60-65%, intermediate diastolic dysfunction
Nephrology consultation reviewed-correspondence reviewed-renal function worsening.
No indication for emergent dialysis at this time
Monitor blood sugar
Insulin supplementation as needed
DVT prophylaxis-on subcu heparin
GI prophylaxis-on pantoprazole
Nutrition
Increase activity.
Reviewed with at the bedside
At risk for obstructive sleep apnea-consider workup as an outpatient
Reviewed with nursing
Diagnostic data:
Chest x-ray 05/02/2024-mild cardiomegaly, mild subpleural subsegmental atelectasis at the lower lobes
Subjective Data
-
Date of Service:
Date of Service: May 05, 2024
Chief Complaint: Pulmonary Follow Up and Dyspnea Follow Up
Subjective:
at the bedside, patient continues with some shortness of breath, no complaints of chest pain or abdominal pain
Review of Systems
General: Other (per HPI)
Objective Data
Data Reviewed
Vital Signs / I&O:
Vital Signs
Temp Pulse Resp BP Pulse Ox
98.5 F 82 14 166/92 94
05/05/24 07:35 05/05/24 11:25 05/05/24 11:25 05/05/24 06:00 05/05/24 07:26
Intake and Output
05/04/24 05/05/24 05/06/24
06:59 06:59 06:59
Intake Total 240 / 240 120 / 120
Output Total 150 / 150 825 / 825
Balance -150 / -150 -585 / -585 120 / 120
SaO2: 94
Nasal Cannula flow liters per minute: 5
Physical Exam
General: Respiratory Distress (n) and Comfortable
HEENT: Normocephalic and Anicteric
Cardiovascular: Regular Rhythm
Respiratory: Wheeze, Crackles, Rhonchi (n), Non-Labored Respirations, Accessory Resp Muscle Use (n) and Stridor
GI: Soft, Non Distended and Non Tender
Neurology: Awake, Alert and No Motor Deficits
Skin: Warm, Good Color, Cyanosis (n) and Jaundice (n)
Labs/Micro/Reports
Lab Data
05/05/24 04:36
05/05/24 04:36
Microbiology
01/07/25 02:52 Urine Urine Culture - Preliminary
Enterococcus species
05/02/24 23:21 Blood/Venous Blood Culture - Final
Enterococcus faecalis
05/02/24 23:21 Blood/Venous Gram Stain - Final
05/02/24 23:21 Blood/Venous Blood Culture - Final
Enterococcus faecalis
05/02/24 23:21 Blood/Venous Gram Stain - Final
05/02/24 23:21 Nasal Swab Influenza Types A & B (THIERRY) - Final
Negative for Influenza A & B, NAAT
Negative results must be combined with clinical observations
and patient history.
Nucleic Acid Amplification test (NAAT)performed on the
[employer] platform.
--- NOTE | 2024-05-05 14:58 | W.PN.HOSP.TC ---
Today's Communication/Plan
-
Continue ampicillin
f/u renal function
f/u serological test
Assessment / Plan
Assessment / Plan
1. COPD exacerbation
Acute hypoxic respite insufficiency
-Chest x-ray showing cardiomegaly without evidence of pulmonary edema, some subsegmental atelectasis/scarring
-Maintain patient on IV steroid/inhaler therapy
-Pulmonology following and help appreciated
2. Enterococcal bacteremia and UTI
-Likely from urinary source although patient does not have any significant dysuria
-Urine culture also growing Enterococcus faecalis
-Start patient on IV ampicillin
-Echocardiogram did not show any vegetation
-Repeaet blood cs ordered .
3. LUIS A
Nephrotic range proteinuria
-Renal/bladder ultrasound did not show any major structural changes
-Creatinine donw today. monitor
-24-hour urine collection showing proteinuria with 4.2 g of protein
-UPEP/SPEP/immunology test pending. Complement normal.
-Nephrology following and help appreciated
4. Type 2 diabetes mellitus
Episode of hypoglycemia
-Likely with Glyburide use
-Maintain on insulin sliding scale, blood sugar to be expected somewhat uncontrolled with steroid need
5. HF ruled out
-Echocardiogram showing preserved ejection fraction. No signs of significant diastolic dysfunction.
6. Essential HTN
- continue amlodipine
- hold losartan for now
- continue terazosin
DVT PPX - heparin sq
Code status - full code
Patient daughter updated at bedside
Discussed with nephrology
Total time spent 52 minutes
Anticipated Discharge: > 48 hours
Subjective/Interval History
-
Date of Service: May 05, 2024
Denies having any problems overnight
Remains on oxygen through nasal cannula
No new events
Objective Data
-
Labs:
Laboratory Results
05/05/24
04:36
WBC 13.6 H
Hgb 13.2
Hct 40.2
Plt Count 194
Sodium 140
Potassium 4.4
Chloride 105
Carbon Dioxide 22
BUN 54 H
Creatinine 3.0 H
Glucose 85
Calcium 8.8
Vital Signs:
Vital Signs
Temp Pulse Resp BP Pulse Ox
98.5 F 82 14 166/92 94
05/05/24 07:35 05/05/24 11:25 05/05/24 11:25 05/05/24 06:00 05/05/24 14:27
I&O
05/04/24 05/05/24 05/06/24
06:59 06:59 06:59
Intake Total 240 / 240 120 / 120
Output Total 150 / 150 825 / 825
Balance -150 / -150 -585 / -585 120 / 120
Review of Systems
-
Respiratory: Reports No Symptoms
Cardiac: Reports No Symptoms
Abdomen/GI: Reports No Symptoms
Physical Exam
-
General: No Apparent Distress and Comfortable
HEENT: Oxygen
Respiratory: Wheezes
Cardiac: Regular Rhythm and S1/S2; Negative Murmur or Rub
GI: Soft, Nontender and Nondistended
Musculoskeletal: No Edema
Neuro: Awake, Alert, Oriented, No Motor Deficits and Nonfocal/Grossly Intact
Psych: Calm
--- NOTE | 2024-05-05 15:17 | CM ---
Chart reviewed and recommendation is for skilled placement, egg caser spoke with patient and patient's daughter along with patient's spouse and they have selected [facility], [facility] and [facility], referrals sent for skilled
placement through [facility].
Plan; Skilled placement.
[2024-05-05 15:54] LABS: Glucose - Point of Care 100 mg/dl (70-99)
[2024-05-05 16:59] LABS: Glucose - Point of Care 107 mg/dl (70-99)
[2024-05-05] MEDS: DECADRON 4 MG IV (17:19)
--- NOTE | 2024-05-05 18:36 | PTCARENOTE ---
pt slightly confused this evening with some paranoid behavior. pt stating that hes leaving and attempting to remove tele wires. reassured patient and called daughter whp spoke with pt. pt reoriented. currently in room and pt is calmer. ekg done
this afternoon d/t monitor reeading afib. unspecified rythym on ekg. heart rate in 70s. hospitalist made aware.
[2024-05-05] MEDS: NORVASC 5 MG PO (19:57)
[2024-05-05] MEDS: CYMBALTA DELAYED RELEASE 30 MG PO (19:57)
[2024-05-05] MEDS: LIPITOR 20 MG PO (19:57)
[2024-05-05] MEDS: ASPIR LOW (ENTERIC COATED) 81 MG PO (19:57)
[2024-05-05] MEDS: HYTRIN 5 MG PO (19:58)
[2024-05-05 21:45] LABS: Glucose - Point of Care 183 mg/dl (70-99)
[2024-05-06] VITALS (11 sets, daily range): BP systolic 124–181; BP diastolic 66–105; PULSE 71; BMI 31.0
[2024-05-06] MEDS: HEPARIN SC ×3 (00:30→22:55)
--- NOTE | 2024-05-06 00:44 | PTCARENOTE ---
Addendum entered by Anette Cordova RN 05/06/24 01:14:
Patient also just had a snack brought in by .
Addendum entered by Anette Cordova RN 05/06/24 01:10:
Refusing 3am temperature and blood sugar check, as pt has not slept. Will wait until closer to AM to check temp/blood sugar and cluster care.
Original Note:
Patient and refusing SQ heparin scheduled at 0000. stating kidney doctor does not want patient to have aspirin or blood thinners since they might do a biopsy. This RN did not receive in report and will report off to next shift to clarify.
Pt has not slept, offered cough or sleep medication. Awaiting Temazepam from pharmacy for patient.
[2024-05-06] MEDS: RESTORIL 30 MG PO ×2 (01:05→22:18)
[2024-05-06 02:51] LABS: Glucose - Point of Care 243 mg/dl (70-99)
--- NOTE | 2024-05-06 02:55 | PTCARENOTE ---
bed alarm sounding.. pt sitting up in bed. pt woke up confused without nasal cannula on and without tele lead on. Blood sugar obtained: 243. Pt cleaned and made comfortable in bed. Bed alarm reset. Call gusman within reach. sleeping on sofa couch.
[2024-05-06] MEDS: AMPICILLIN 108 MG IV ×3 (05:12→20:37)
[2024-05-06] MEDS: DECADRON 4 MG IV (05:12)
[2024-05-06 05:41] LABS: Hematocrit 38.8 % (39.0-52.0); Hemoglobin 12.7 g/dL (13.0-18.0); Mean Corp Hgb Conc. 32.7 g/dL (33.0-37.0); Mean Corpuscular Hgb 27.9 pg (27.0-31.0); Mean Corpuscular Volume 85.1 fL (80.0-94.0); Mean Platelet Volume 12.7 fL (7.4-10.4); Platelet Count 188 10^3/uL (130-400); Red Blood Cell Count 4.56 10^6/uL (4.70-6.10); Red Cell Dist. Width 14.7 % (11.5-14.5); White Blood Cell Count 9.6 10^3/uL (4.8-10.8)
[2024-05-06 06:07] LABS: Blood Urea Nitrogen 57 mg/dl (9-20); Calcium 8.6 mg/dl (8.4-10.2); Carbon Dioxide 22 mmol/L (22-30); Chloride 105 mmol/L (98-107); Estimated Creatinine Clearance 22 ml/min; Glucose 231 mg/dl (70-99); Potassium 4.4 mmol/L (3.5-5.1); Sodium 137 mmol/L (135-145); eGFR 23.14
[2024-05-06] MEDS: DUONEB 3 ML INH ×2 (07:19→11:16)
[2024-05-06] MEDS: PULMICORT 0.5 MG INH ×2 (07:19→18:04)
[2024-05-06 09:32] LABS: Glucose - Point of Care 196 mg/dl (70-99)
[2024-05-06] MEDS: BETAPACE 120 MG PO (09:35)
[2024-05-06] MEDS: MUCINEX 600 MG PO ×2 (09:36→20:06)
[2024-05-06] MEDS: NORVASC 5 MG PO ×2 (09:37→20:05)
[2024-05-06] MEDS: NOVOLOG FLEXPEN-MODERATE RESISTANCE 1 UNITS SC ×2 (10:00→18:35)
[2024-05-06] MEDS: NOVOLOG FLEXPEN-LOW RESISTANCE SC (10:02)
--- NOTE | 2024-05-06 10:18 | W.PN.PUL.V3 ---
Today's Communication / Plan
-
Wean oxygen
Increase activity
Steroids discontinued
Nebulizers if needed
Finite course of antibiotics
Pulmonary will sign off-please call with questions
Assessment
-
88-year-old male former smoking [place] immigrant who has a history of hypertension, hyperlipidemia diabetes and possible COPD presented with shortness of breath, hypertension, tachypnea, leukocytosis felt to have COPD exacerbation-pulmonary
consulted for potential COPD 05/03/2024.
COPD suspected with acute exacerbation
Bronchitis
Enterococcal bacteremia
UTI
LUIS A
Suspected CHF-EF unknown
Leukocytosis
Hyperglycemia
Conditions present prior to admission:
Hypertension.
Hyperlipidemia.
Diabetes.
Obesity.
Plan
Acute decompensation likely a combination of COPD and possibly CHF
Supplemental oxygen as needed-currently on 2 L - 93%, was 91% on room air when Dr. Phillip walked in the room 05/06/2024
Wean supplemental oxygen
Assess discharge needs prior to discharge
Aspiration precautions
Decadron 6 mg given in the ED-observed subsequently off steroids-reinitiate with increased hypoxemia and some wheezing on exam-subsequently discontinued due to confusion and wheezing improved 05/06/2024
DuoNebs continue
Budesonide nebulizers continue
Mucolytic's.
Cultures reviewed
Blood cultures 05/02/2024 2/2 positive for Enterococcus species
Influenza negative
Urine culture -Enterococcus
Empiric antibiotics-Rocephin and doxycycline initiated-changed to ampicillin
Diuresis continues if tolerated
Monitor renal function, electrolytes, intake/output, lower extremity edema and weight
Replace electrolytes as needed
Echocardiogram 05/03/2024-EF 60-65%, intermediate diastolic dysfunction
Nephrology consultation reviewed-correspondence reviewed-renal function worsening.
No indication for emergent dialysis at this time
Hold off on renal biopsy per nephrology notes 05/06/2024-likely chronic disease and low yield diagnostically
Monitor blood sugar
Insulin supplementation as needed
DVT prophylaxis-on subcu heparin
GI prophylaxis-on pantoprazole
Nutrition
Increase activity.
Reviewed with as well as nursing at the bedside
At risk for obstructive sleep apnea-consider workup as an outpatient
Respiratory status has improved-wean oxygen, assess discharge supplemental oxygen needs, steroids discontinued, nebulizers as needed-pulmonary will sign off-please call with questions
Diagnostic data:
Chest x-ray 05/02/2024-mild cardiomegaly, mild subpleural subsegmental atelectasis at the lower lobes
Subjective Data
-
Date of Service:
Date of Service: May 06, 2024
Chief Complaint: Pulmonary Follow Up and Dyspnea Follow Up
Subjective:
Some confusion last evening, no complaints of shortness of breath at rest, chest pain or abdominal pain, on room air-91% saturation
Review of Systems
General: Other (Per HPI)
Objective Data
Data Reviewed
Vital Signs / I&O:
Vital Signs
Temp Pulse Resp BP Pulse Ox
98.0 F 61 28 128/84 93
05/06/24 03:00 05/06/24 09:37 05/06/24 08:00 05/06/24 09:37 05/06/24 09:47
Intake and Output
05/05/24 05/06/24 05/07/24
06:59 06:59 06:59
Intake Total 240 / 240 556 / 556 120 / 120
Output Total 825 / 825 325 / 325 175 / 175
Balance -585 / -585 231 / 231 -55 / -55
SaO2: 93
Nasal Cannula flow liters per minute: 2
Physical Exam
General: Respiratory Distress (n) and Comfortable
HEENT: Normocephalic and Anicteric
Cardiovascular: Regular Rhythm
Respiratory: Wheeze, Crackles, Rhonchi (n), Non-Labored Respirations, Accessory Resp Muscle Use (n) and Stridor
GI: Soft, Non Distended and Non Tender
Neurology: Awake, Alert and No Motor Deficits
Skin: Warm, Good Color, Cyanosis (n) and Jaundice (n)
Labs/Micro/Reports
Lab Data
05/06/24 05:31
05/06/24 05:31
Microbiology
05/03/24 02:52 Urine Urine Culture - Preliminary
Enterococcus species
05/02/24 23:21 Blood/Venous Blood Culture - Final
Enterococcus faecalis
05/02/24 23:21 Blood/Venous Gram Stain - Final
05/02/24 23:21 Blood/Venous Blood Culture - Final
Enterococcus faecalis
05/02/24 23:21 Blood/Venous Gram Stain - Final
--- NOTE | 2024-05-06 10:20 | W.PN.NEPH.PH ---
Today's Communication / Plan
-
may restart ASA, I am not in favor of pursuing renal biopsy unless serologies indicate otherwise
ARB remains held in setting of acute kidney injury blood pressure stay
Assessment/Plan
-
IMP:
Acute bronchitis suspected with COPD exacerbation
Possible CHF
LUIS A with CKD 3-follows with the nephrology at [facility] Dr Siddiqi
Mild hyperkalemia
Non gap met acidosis
UTI
h/o bph
HTN
DM II
Plan:
A/w fall, noted acute bronchitis and +/-CHF
LUIS A-last cr was at 1.2 in 2021, no recent labs available, cr peak at 3.3, now down to 2.6 with urine output of 500 cc
UA -UTI sample,borderline left hydro on renal US may need to repeat later
follow bladder scan with h/o BPH, bladder scan 99cc
Urine lab shows significant proteinuria unable to calculate, 24-hour urine protein 4grams , serologies, paraprotein workup
I do not favor following a kidney biopsy at this time, his ultrasound shows chronically damaged kidneys the likelihood of biopsy being helpful is extremely low, if in fact his serologies are indicative of otherwise we can change direction
We can reinitiate aspirin
avoid nephrotoxins , dose meds renally -holding metformin and ARB
k normal, cont to hold potassium supplements
await records from his nephrology, still not here
BP increasing trend, increase amlodipine to 5 BID
Pt on Sotalol with a history of heart arrhythmia, cardiology at [facility]
mild metabolic acidosis Improving,monitor
echo normal EF though his BNP is elevated with LUIS A, no diuresis
Continue antibiotic per primary team for enterococcus bacteremia, UTI-on Unasyn
no emergent indication of dialysis, reviewed with the patient possibility of high risk if renal function worsens
-
-
Date of Service: May 06, 2024
CC / HPI / ROS
-
Chief Complaint:
LUIS A
History of Present Illness:
cr down to 2.6
BP stable off ARB
Review of Systems:
No chest pain or shortness of breath at rest. No nausea or vomiting, denies any dysuria
Labs
-
Labs:
WBC 9.6 10^3/uL (4.8-10.8) 05/06/24 05:31
RBC 4.56 10^6/uL (4.70-6.10) L 05/06/24 05:31
Hgb 12.7 g/dL (13.0-18.0) L 05/06/24 05:31
Hct 38.8 % (39.0-52.0) L 05/06/24 05:31
Plt Count 188 10^3/uL (130-400) 05/06/24 05:31
Sodium 137 mmol/L (135-145) 05/06/24 05:31
Potassium 4.4 mmol/L (3.5-5.1) 05/06/24 05:31
Chloride 105 mmol/L (98-107) 05/06/24 05:31
Carbon Dioxide 22 mmol/L (22-30) 05/06/24 05:31
BUN 57 mg/dl (9-20) H 05/06/24 05:31
Creatinine 2.6 mg/dL (0.7-1.3) H 05/06/24 05:31
eGFR 23.14 05/06/24 05:31
Glucose 231 mg/dl (70-99) H 05/06/24 05:31
Calcium 8.6 mg/dl (8.4-10.2) 05/06/24 05:31
Gvc-B-Mnrgtskapdd Pept 4540 pg/ml 05/02/24 22:09
Albumin 3.8 g/dl (3.5-5.0) 05/02/24 22:09
Physical Exam
-
Vital Signs:
Vital Signs
Temp Pulse Resp BP Pulse Ox
98.0 F 61 28 128/84 93
05/06/24 03:00 05/06/24 09:37 05/06/24 08:00 05/06/24 09:37 05/06/24 10:18
Cardiovascular:: Regular rate and rhythm
Respiratory:: Bilateral: CTA
Lung Excursion:: Normal
Abdomen:: Nontender and Soft
Extremity Edema:: None: Bilateral:
Cole Catheter: No
[2024-05-06] MEDS: NOVOLOG FLEXPEN-MODERATE RESISTANCE 3 UNITS SC (12:40)
[2024-05-06 12:47] LABS: Glucose - Point of Care 229 mg/dl (70-99)
--- NOTE | 2024-05-06 12:50 | CON.ID ---
Consultation
-
Date/Time Consultation Requested: 05/06/24 9:13
Date/Time Consultation Performed: 05/06/24 12:50
Requesting Provider: Dr Ray
Performing Provider: Dr Laura
Reason for Consultation: eneteroccocus bacteremia
Chief Complaint / Past History
Chief Complaint
Fall and weakness
History of Present Illness
Mr Streeter is an 88 year old male with history of DM2, BPH who presented here 05/03 for fall, weakness, wheezing and shortness of breath. Patient fell when getting into bed and was then brought to the ER. No known history of CHF, no chest pain. No
sick contacts or travel. Has remote history of DVT now off of anticoagulation.
Since arrival here he has been afebrile, bp stable, WBC initially 18 now 9.6, hgb 12.7, plt 188, L shift was present on arrival and not repeated since, na initially 138, K 4.4, cr initially 2.8 from baseline of 1.2, cr today is 2.6, lactic acid
initially 1.9, procalcitonin 0.35 in the setting of cr 2.8 (not an interpretable test), covid ag negative, renal US: medical renal disease, borderline L hydronephrosis, UA 30-40 wbc/hpf, urine culture 100K e faecalis and blood cultures x2 on arrival
both with E faecalis - amp sensitive, Levaquin sensitive, resistant to tetracyclines, TTE 05/03 no vegetation seen, a blood culture was repeated today, renal biopsy being considered though not favored by nephrology. Assessed as having likely
combincation of COPD and possibly CHF by endodontist. Patient was started on decadron 6 mg in the ER - then observed off an later restarted when wheezing again noted - discontinued due to confused and wheezing improved 05/06/24, was initially on
ceftriaxone and doxycycline switched to ampicillin 05/04 when gpcs in chains/pairs seen in blood culture, qtc 473, ID is consulted for assistance with management. Patient reports no new back pain, doesnt think he has hardwear in the spine but does
recall a remote spinal surgery. No changes in the vision. No new swollen or tender joints. Had some dysuria initially that is now improving.
Past History
Additional Past Medical History:
HTN, Hypercholesterolemia and NIDDM, BPH
Additional Past Surgical History:
'spinal surgery' doesnt think there was metal placed at that time
cholecystectomy
'prostate surgery'
Allergy History:
No Known Allergies Allergy (Verified 05/02/24 22:08)
Medications Reviewed: Yes
Social History
Tobacco: Former Smoker
Alcohol: None
Drug: None
Family History
Family History: Not Pertinent
Review of Systems
Review of Systems
General: Negative Fever or Chills
All systems: All other systems were reviewed and were negative
Vital Signs
Temp Pulse Resp BP Pulse Ox
97.5 F 89 22 164/101 93
05/06/24 11:55 05/06/24 11:19 05/06/24 11:19 05/06/24 10:50 05/06/24 11:19
Physical Exam
Physical Exam
Constitutional: No Acute Distress
Cardiovascular: Regular Rate and S1/S2; Negative Murmur or Rub
Pulmonary: Clear and Symmetric; Negative Wheezes, Rales or Rhonchi
Gastrointestinal: Soft, Non Tender, Non Distended and Normal Bowel Sounds
Genito-Urinary: Negative Suprapubic Tenderness
Extremities: Negative Splinter Hemorrhage or Janeway Lesions
Musculoskeletal: Negative Joint Swelling
Skin: Warm and Dry; Negative Rash or Jaundice
Neurological: Awake
Lab / Diagnostic Study Results
05/06/24 05:31
05/06/24 05:31
Abs Immat Gran (auto) 0.2 10^3/uL (0-0.05) H 05/02/24 22:09
Absolute Neuts (auto) 15.7 10^3/uL (1.4-6.5) H 05/02/24 22:09
Absolute Lymphs (auto) 0.9 10^3/uL (1.2-3.4) L 05/02/24 22:09
Absolute Monos (auto) 1.5 10^3/uL (0.1-0.6) H 05/02/24 22:09
Absolute Basos (auto) 0.1 10^3/uL (0-0.2) 05/02/24 22:09
Immature Gran % 0.8 % (0-0.5) H 05/02/24 22:09
Neutrophils % 86.0 % (42.2-75.2) H 05/02/24 22:09
Lymphocytes % 4.7 % (20.5-51.1) L 05/02/24 22:09
Monocytes % 8.1 % (1.7-9.3) 05/02/24 22:09
Eosinophils % 0.1 % (0-6) 05/02/24 22:09
Basophils % 0.3 % (0-2) 05/02/24 22:09
Lactic Acid Cancelled 05/03/24 03:00
Procalcitonin 0.35 ng/ml (0.0-0.25) H 05/03/24 01:45
Ur Squamous Epith Cells 0-2 /LPF (Few) 05/03/24 02:52
Microbiology Results
Micro:
05/03/24 02:52 Urine Culture - Final
Urine Enterococcus faecalis
05/06/24 05:31 Blood Culture - Pending
Blood/Venous
05/02/24 23:21 Blood Culture - Final
Blood/Venous Enterococcus faecalis
Gram Stain - Final
05/02/24 23:21 Blood Culture - Final
Blood/Venous Enterococcus faecalis
Gram Stain - Final
05/02/24 23:21 Influenza Types A & B (THIERRY) - Final
Nasal Swab Negative for Influenza A & B, NAAT
Negative results must be combined with clinical observations
and patient history.
Nucleic Acid Amplification test (NAAT)performed on the
[employer] NOW platform.
Urine Culture Final 05/06/24-1248
CC: Greater than 100,000 CFU/ML Enterococcus faecalis
Organism 1 Enterococcus faecalis
1. Enterococcus faecalis
M.I.C. RX
--------- ---
Ampicillin <=2 S
Gentamicin Synergy Screen <=500 S
Susceptible result indicates synergy is likely with a cell
wall active agent that is also susceptible
(e.g.ampicillin,penicillin,vancomycin)
Levofloxacin <=1 S
Nitrofurantoin-Urine Only <=32 S
Tetracycline >8 R
Vancomycin 1 S
Assessment / Plan
E faecalis Bacteremia
E faecalis UTI
COPD exacerbation
LUIS A
DM2
- send second set of blood cultures today - would like to see two sets negative at 48 hours prior to finalizing course
- urine culture 100K E faecalis - likely source of bacteremia; UA not consistent with glomerulonephritis to suggest endocarditis
- TTE no vegetations 05/03 after bacteremia began
- agree with ampicillin IV at 2 gm IV q8 hours for present, if blood cultures clear as expected for eventual transition to orals
- QTc 473
- check A1c, recommend tight glucose control
- will follow cultures are clinically
--- NOTE | 2024-05-06 15:23 | W.PN.HOSP.TC ---
Addendum entered and electronically signed by Tulio Ray MD 05/06/24 15:48:
Add on to diagnosis list:
Sepsis - POA - improved
Original Note:
Today's Communication/Plan
-
Transfer MedSurg
Continue antiotic
Follow-up repeat blood culture
ID evaluation
Aspirin resumed
Steroid to be transition to prednisone from tomorrow
Assessment / Plan
Assessment / Plan
1. COPD exacerbation
Acute hypoxic respite insufficiency
-Chest x-ray showing cardiomegaly without evidence of pulmonary edema, some subsegmental atelectasis/scarring
-Pulmonology following and help appreciated
-Case discussed with nephrology biopsy strongly not indicated at this juncture. Will transition patient to oral steroids from tomorrow.
2. Enterococcal bacteremia and UTI
-Likely from urinary source although patient does not have any significant dysuria
-Urine culture also growing Enterococcus faecalis
-Start patient on IV ampicillin
-Echocardiogram did not show any vegetation
-Repeat blood cs ordered . ID consulted for further help
3. LUIS A
Nephrotic range proteinuria
-Renal/bladder ultrasound did not show any major structural changes
-Creatinine donw today. monitor
-24-hour urine collection showing proteinuria with 4.2 g of protein
-UPEP/SPEP/immunology test pending. Complement normal.
-Nephrology following and help appreciated
4. Type 2 diabetes mellitus
Episode of hypoglycemia
-Likely with Glyburide use
-Maintain on insulin sliding scale, blood sugar to be expected somewhat uncontrolled with steroid need
5. HF ruled out
-Echocardiogram showing preserved ejection fraction. No signs of significant diastolic dysfunction.
6. Essential HTN
- continue amlodipine
- hold losartan for now
- continue terazosin
DVT PPX - heparin sq
Code status - full code
spouse at bedside and updated
discussed with nephrology/pulmonology
Total time spent : 52 mins
Anticipated Discharge: 24 - 48 hours
Subjective/Interval History
-
Date of Service: May 06, 2024
remains on o2 through [place]
some back pain reported
no abd pain/nausea/vomiting
Objective Data
-
Labs:
Laboratory Results
05/06/24
05:31
WBC 9.6
Hgb 12.7 L
Hct 38.8 L
Plt Count 188
Sodium 137
Potassium 4.4
Chloride 105
Carbon Dioxide 22
BUN 57 H
Creatinine 2.6 H
Glucose 231 H
Calcium 8.6
Vital Signs:
Vital Signs
Temp Pulse Resp BP Pulse Ox
97.5 F 80 26 155/92 98
05/06/24 11:55 05/06/24 14:00 05/06/24 14:00 05/06/24 14:00 05/06/24 15:05
I&O
05/05/24 05/06/24 05/07/24
06:59 06:59 06:59
Intake Total 240 / 240 556 / 556 120 / 120
Output Total 825 / 825 325 / 325 175 / 175
Balance -585 / -585 231 / 231 -55 / -55
Review of Systems
-
Respiratory: Reports No Symptoms
Cardiac: Reports No Symptoms
Abdomen/GI: Reports No Symptoms
Physical Exam
-
General: No Apparent Distress and Comfortable
HEENT: Oxygen
Respiratory: Wheezes
Cardiac: Regular Rhythm and S1/S2; Negative Murmur or Rub
GI: Soft, Nontender and Nondistended
Musculoskeletal: No Edema
Neuro: Awake, Alert, Oriented, No Motor Deficits and Nonfocal/Grossly Intact
Psych: Calm
[2024-05-06 16:45] LABS: Glucose - Point of Care 151 mg/dl (70-99)
--- NOTE | 2024-05-06 16:49 | PTCARENOTE ---
Patient is out of bed to chair, continent of bowel and bladder. Excellent urine output today, urine is clear and yellow. Patient is eating well. Denying pain when asked. For transfer to room 320 this evening.
[2024-05-06] MEDS: HEPARIN 5000 UNITS SC (16:53)
[2024-05-06] MEDS: MIRALAX 17 GRAMS PO (16:54)
[2024-05-06] MEDS: APRESOLINE 10 MG IV (17:21)
--- NOTE | 2024-05-06 17:25 | CM ---
French/Macanese speaking patient who fell at home. O2 2L. Receiving IV Abx. PT recommends skilled rehab.
SNF referrals reviewed; accepted by [facility].
Spoke with daughter Brianne; she will decide which SNF she prefers and she will let CM know tomorrow.
Plan follow up with patient's daughter for SNF preference.
--- NOTE | 2024-05-06 17:26 | PTCARENOTE ---
Patient blood pressure is 180/81. IV hydralazine administered as per doctors orders. Report given to Silvino ADKINS for transfer to room 320.
[2024-05-06 21:15] LABS: Glucose - Point of Care 155 mg/dl (70-99)
[2024-05-06 21:17] LABS: ANA, IgG Reflex to HEp-2 None Detected (None Detected)
[2024-05-06] MEDS: CYMBALTA DELAYED RELEASE 30 MG PO (22:18)
[2024-05-06] MEDS: ASPIR LOW (ENTERIC COATED) 81 MG PO (22:18)
[2024-05-06] MEDS: LIPITOR 20 MG PO (22:18)
[2024-05-06] MEDS: HYTRIN 5 MG PO (22:20)
[2024-05-07] VITALS (7 sets, daily range): BP systolic 135–190; BP diastolic 67–118; PULSE 58–68; O2SAT 97
[2024-05-07] MEDS: AMPICILLIN 108 MG IV ×3 (05:07→20:42)
[2024-05-07] MEDS: PULMICORT 0.5 MG INH ×2 (07:21→20:01)
[2024-05-07 08:02] LABS: Glucose - Point of Care 162 mg/dl (70-99)
[2024-05-07] MEDS: NOVOLOG FLEXPEN-MODERATE RESISTANCE 1 UNITS SC ×2 (08:15→18:09)
[2024-05-07 08:16] LABS: Blood Urea Nitrogen 57 mg/dl (9-20); Calcium 8.8 mg/dl (8.4-10.2); Carbon Dioxide 26 mmol/L (22-30); Chloride 105 mmol/L (98-107); Estimated Creatinine Clearance 24 ml/min; Glucose 147 mg/dl (70-99); Sodium 141 mmol/L (135-145); eGFR 25.48
[2024-05-07] MEDS: DELTASONE 40 MG PO (08:19)
[2024-05-07] MEDS: MUCINEX 600 MG PO ×2 (08:20→20:43)
[2024-05-07] MEDS: NORVASC 5 MG PO (08:50)
[2024-05-07] MEDS: BETAPACE 120 MG PO (08:51)
[2024-05-07] MEDS: HEPARIN 5000 UNITS SC ×2 (08:52→16:57)
[2024-05-07] MEDS: MIRALAX 17 GRAMS PO (08:56)
[2024-05-07 09:48] LABS: Glycohemoglobin (HgbA1c) 6.2 % (4.0-5.6)
[2024-05-07 11:23] LABS: Myeloperoxidase Antibody 0 AU/mL (0-19); Serine Protease-3, IgG 0 AU/mL (0-19)
[2024-05-07 12:20] LABS: Glucose - Point of Care 264 mg/dl (70-99)
--- NOTE | 2024-05-07 12:27 | W.PN.NEPH.PH ---
Today's Communication / Plan
-
Follow BMP
Add back losartan 25 mg today
Assessment/Plan
-
IMP:
Acute bronchitis suspected with COPD exacerbation
Possible CHF
LUIS A with CKD 3-follows with the nephrology at [facility] Dr Siddiqi (creatinine 1.5 11/17)
Mild hyperkalemia
Non gap met acidosis
UTI
h/o bph
HTN
DM II
Plan:
A/w fall, noted acute bronchitis and +/-CHF
LUIS A-last cr was at 1.2 in 2021, no recent labs available, cr peak at 3.3, now down to 2.4 with urine output of 500 cc
UA -UTI sample,borderline left hydro on renal US may need to repeat later
follow bladder scan with h/o BPH, bladder scan 99cc
Urine lab shows significant proteinuria unable to calculate, 24-hour urine protein 4grams , serologies, paraprotein workup
I do not favor following a kidney biopsy at this time, his ultrasound shows chronically damaged kidneys the likelihood of biopsy being helpful is extremely low, as his serologies are negative
We can reinitiate aspirin
avoid nephrotoxins , dose meds renally -holding metformin and ARB
k normal, cont to hold potassium supplements
await records from his nephrology group, still not here
BP increasing trend, increased amlodipine to 5 BID, will add back lower dose of cozaar today 25mg (usually on 100mg)
Pt on Sotalol with a history of heart arrhythmia, cardiology at [facility]
mild metabolic acidosis Improving,monitor
echo normal EF though his BNP is elevated with LUIS A,
Continue antibiotic per primary team for enterococcus bacteremia, UTI-on Unasyn
no emergent indication of dialysis, previously reviewed with the patient possibility of high risk if renal function worsens
-
-
Date of Service: May 07, 2024
CC / HPI / ROS
-
Chief Complaint:
LUIS A
History of Present Illness:
cr down to 2.4
BP stable elevated ARB
Review of Systems:
No chest pain or shortness of breath at rest. No nausea or vomiting, denies any dysuria
Labs
-
Labs:
WBC 9.6 10^3/uL (4.8-10.8) 05/06/24 05:31
RBC 4.56 10^6/uL (4.70-6.10) L 05/06/24 05:31
Hgb 12.7 g/dL (13.0-18.0) L 05/06/24 05:31
Hct 38.8 % (39.0-52.0) L 05/06/24 05:31
Plt Count 188 10^3/uL (130-400) 05/06/24 05:31
Sodium 141 mmol/L (135-145) 05/07/24 07:22
Potassium 4.0 mmol/L (3.5-5.1) 05/07/24 07:22
Chloride 105 mmol/L (98-107) 05/07/24 07:22
Carbon Dioxide 26 mmol/L (22-30) 05/07/24 07:22
BUN 57 mg/dl (9-20) H 05/07/24 07:22
Creatinine 2.4 mg/dL (0.7-1.3) H 05/07/24 07:22
eGFR 25.48 05/07/24 07:22
Glucose 147 mg/dl (70-99) H 05/07/24 07:22
Calcium 8.8 mg/dl (8.4-10.2) 05/07/24 07:22
Yse-C-Wmuuyllvbuy Pept 4540 pg/ml 05/02/24 22:09
Albumin 3.8 g/dl (3.5-5.0) 05/02/24 22:09
Physical Exam
-
Vital Signs:
Vital Signs
Temp Pulse Resp BP Pulse Ox
98.2 F 63 18 167/79 96
05/07/24 11:00 05/07/24 11:00 05/07/24 11:00 05/07/24 11:00 05/07/24 11:00
Cardiovascular:: Regular rate and rhythm
Respiratory:: Bilateral: CTA
Lung Excursion:: Normal
Abdomen:: Nontender and Soft
Extremity Edema:: None: Bilateral:
Cole Catheter: No
[2024-05-07] MEDS: COZAAR 25 MG PO (12:48)
[2024-05-07] MEDS: NOVOLOG FLEXPEN-MODERATE RESISTANCE 5 UNITS SC (13:08)
--- NOTE | 2024-05-07 13:15 | W.PN.HOSP.TC ---
Today's Communication/Plan
-
adjust BP meds
increase insulin coverage
continue steroids
f/u renal function
rehab placement earliest mon
Assessment / Plan
Assessment / Plan
1. COPD exacerbation
Acute hypoxic respite insufficiency
-Chest x-ray showing cardiomegaly without evidence of pulmonary edema, some subsegmental atelectasis/scarring
-Pulmonology following and help appreciated
-Case discussed with nephrology biopsy strongly not indicated at this juncture. Will transition patient to oral steroids from tomorrow.
2. Enterococcal bacteremia and UTI
-Likely from urinary source although patient does not have any significant dysuria
-Urine culture also growing Enterococcus faecalis
-Echocardiogram did not show any vegetation
-Repeat blood cs neg so far. continue f/u
-ID help appreciated
-continue on ampicillin
3. LUIS A
Nephrotic range proteinuria
-Renal/bladder ultrasound did not show any major structural changes
-Creatinine donw today. monitor
-24-hour urine collection showing proteinuria with 4.2 g of protein
-UPEP/SPEP pending. complement normal. PR3/MPO ab neg.
-Nephrology following and help appreciated
4. Type 2 diabetes mellitus
Episode of hypoglycemia
-hypoglycemia episode Likely with Glyburide use and luis a
-Maintain on insulin sliding scale, blood sugar to be expected somewhat uncontrolled with steroid need
5. HF ruled out
-Echocardiogram showing preserved ejection fraction. No signs of significant diastolic dysfunction.
6. Essential HTN - Uncontrolled
-Currently on regimen of sotalol/losartan/terazosin
-change norvasc to procardia
-As needed hydralazine ordered
DVT PPX - heparin sq
Code status - full code
Anticipated Discharge: > 48 hours
Subjective/Interval History
-
Date of Service: May 07, 2024
Breathing subjectively better
Oxygen requirement is down
No other reported issues overnight
Remains afebrile
Objective Data
-
Labs:
Laboratory Results
05/07/24
07:22
Sodium 141
Potassium 4.0
Chloride 105
Carbon Dioxide 26
BUN 57 H
Creatinine 2.4 H
Glucose 147 H
Calcium 8.8
Vital Signs:
Vital Signs
Temp Pulse Resp BP Pulse Ox
98.2 F 63 18 167/79 96
05/07/24 11:00 05/07/24 12:48 05/07/24 11:00 05/07/24 12:48 05/07/24 11:00
I&O
05/06/24 05/07/24 05/08/24
06:59 06:59 06:59
Intake Total 556 / 556 560 / 560
Output Total 325 / 325 1075 / 1075
Balance 231 / 231 -515 / -515
Review of Systems
-
Respiratory: Reports Cough
Cardiac: Reports No Symptoms
Abdomen/GI: Reports No Symptoms
Physical Exam
-
General: No Apparent Distress and Comfortable
HEENT: Oxygen
Respiratory: Wheezes
Cardiac: Regular Rhythm and S1/S2; Negative Murmur or Rub
GI: Soft, Nontender and Nondistended
Musculoskeletal: No Edema
Neuro: Awake, Alert, Oriented, No Motor Deficits and Nonfocal/Grossly Intact
Psych: Calm
[2024-05-07 17:02] LABS: Glucose - Point of Care 156 mg/dl (70-99)
[2024-05-07] MEDS: NOVOLOG FLEXPEN 3 UNITS SC (18:07)
[2024-05-07] MEDS: DESENEX/MITRAZOL/ZEASORB 1 APPLIC TOPICAL (18:11)
[2024-05-07] MEDS: CYMBALTA DELAYED RELEASE 30 MG PO (20:42)
[2024-05-07] MEDS: ASPIR LOW (ENTERIC COATED) 81 MG PO (20:43)
[2024-05-07] MEDS: LIPITOR 20 MG PO (20:43)
[2024-05-07] MEDS: HYTRIN 5 MG PO (20:43)
[2024-05-07] MEDS: PROCARDIA XL (EXTENDED RELEASE) 30 MG PO (20:43)
[2024-05-07] MEDS: FLUSH (NSS) 1 FLUSH IV (20:44)
[2024-05-07 21:23] LABS: Glucose - Point of Care 221 mg/dl (70-99)
[2024-05-07] MEDS: HEPARIN SC (23:55)
[2024-05-08] VITALS (7 sets, daily range): BP systolic 114–171; BP diastolic 69–97; PULSE 63–135; BMI 31.2
[2024-05-08] MEDS: AMPICILLIN 108 MG IV ×2 (05:01→13:27)
[2024-05-08] MEDS: PULMICORT 0.5 MG INH ×2 (07:18→20:20)
[2024-05-08 07:50] LABS: Blood Urea Nitrogen 56 mg/dl (9-20); Carbon Dioxide 28 mmol/L (22-30); Chloride 104 mmol/L (98-107); Estimated Creatinine Clearance 26 ml/min; Glucose 151 mg/dl (70-99); Sodium 141 mmol/L (135-145); eGFR 28.28
[2024-05-08 08:44] LABS: Glucose - Point of Care 140 mg/dl (70-99)
[2024-05-08] MEDS: NOVOLOG FLEXPEN-MODERATE RESISTANCE SC (09:16)
[2024-05-08] MEDS: MIRALAX 17 GRAMS PO (09:19)
[2024-05-08] MEDS: NOVOLOG FLEXPEN 3 UNITS SC ×3 (09:19→18:34)
[2024-05-08] MEDS: MUCINEX 600 MG PO ×2 (09:20→19:58)
[2024-05-08] MEDS: BETAPACE 120 MG PO (09:20)
[2024-05-08] MEDS: PROCARDIA XL (EXTENDED RELEASE) 30 MG PO ×2 (09:21→19:58)
[2024-05-08] MEDS: COZAAR 25 MG PO (09:21)
[2024-05-08] MEDS: HEPARIN 5000 UNITS SC ×3 (09:21→22:37)
[2024-05-08] MEDS: DELTASONE 40 MG PO (09:21)
--- NOTE | 2024-05-08 11:18 | W.PN.NEPH.PH ---
Today's Communication / Plan
-
follow bmp
Assessment/Plan
-
IMP:
Acute bronchitis suspected with COPD exacerbation
Possible CHF
LUIS A with CKD 3-follows with the nephrology at [facility] Dr Siddiqi (creatinine 1.5 11/17)
Mild hyperkalemia
Non gap met acidosis
UTI
h/o bph
HTN
DM II
Plan:
A/w fall, noted acute bronchitis and +/-CHF
LUIS A-last cr was at 1.2 in 2021, no recent labs available, cr peak at 3.3, now down to 2.2 with nonoliguric
UA -UTI sample,borderline left hydro on renal US may need to repeat later
follow bladder scan with h/o BPH, bladder scan 99cc
Urine lab shows significant proteinuria unable to calculate, 24-hour urine protein 4grams , serologies, paraprotein workup
I do not favor following a kidney biopsy at this time, his ultrasound shows chronically damaged kidneys the likelihood of biopsy being helpful is extremely low, as his serologies are negative
We can reinitiate aspirin
avoid nephrotoxins , dose meds renally -holding metformin and ARB
k normal, cont to hold potassium supplements
await records from his nephrology group, still not here
BP increasing trend, added back lower dose of cozaar 25mg (usually on 100mg),bp now improved
Pt on Sotalol with a history of heart arrhythmia, cardiology at [facility]
mild metabolic acidosis resolved
echo normal EF though his BNP is elevated with LUIS A, will likely eventually require diuretic , however weights and volume status appears to be stable
-
-
Date of Service: May 08, 2024
CC / HPI / ROS
-
Chief Complaint:
LUIS A
History of Present Illness:
cr down to 2.2
BP stable elevated ARB
Review of Systems:
No chest pain or shortness of breath at rest. No nausea or vomiting, denies any dysuria
Labs
-
Labs:
WBC 9.6 10^3/uL (4.8-10.8) 05/06/24 05:31
RBC 4.56 10^6/uL (4.70-6.10) L 05/06/24 05:31
Hgb 12.7 g/dL (13.0-18.0) L 05/06/24 05:31
Hct 38.8 % (39.0-52.0) L 05/06/24 05:31
Plt Count 188 10^3/uL (130-400) 05/06/24 05:31
Sodium 141 mmol/L (135-145) 05/08/24 06:12
Potassium 4.0 mmol/L (3.5-5.1) 05/08/24 06:12
Chloride 104 mmol/L (98-107) 05/08/24 06:12
Carbon Dioxide 28 mmol/L (22-30) 05/08/24 06:12
BUN 56 mg/dl (9-20) H 05/08/24 06:12
Creatinine 2.2 mg/dL (0.7-1.3) H 05/08/24 06:12
eGFR 28.28 05/08/24 06:12
Glucose 151 mg/dl (70-99) H 05/08/24 06:12
Calcium 9.0 mg/dl (8.4-10.2) 05/08/24 06:12
Goa-X-Njipuqmubmr Pept 4540 pg/ml 05/02/24 22:09
Albumin 3.8 g/dl (3.5-5.0) 05/02/24 22:09
Physical Exam
-
Vital Signs:
Vital Signs
Temp Pulse Resp BP Pulse Ox
97.3 F 93 16 144/77 94
05/08/24 07:00 05/08/24 07:20 05/08/24 07:20 05/08/24 07:00 05/08/24 08:30
Cardiovascular:: Regular rate and rhythm
Respiratory:: Bilateral: CTA
Lung Excursion:: Normal
Abdomen:: Nontender and Soft
Extremity Edema:: None: Bilateral:
Cole Catheter: No
[2024-05-08 11:50] LABS: Glucose - Point of Care 217 mg/dl (70-99)
--- NOTE | 2024-05-08 12:27 | W.PN.HOSP.TC ---
Today's Communication/Plan
-
f/u blood cs
f/u cr level
Await ID recommendation for antibiotic
Discharge planning for SNF from tomorrow
Assessment / Plan
Assessment / Plan
1. COPD exacerbation
Acute hypoxic respite insufficiency
-Chest x-ray showing cardiomegaly without evidence of pulmonary edema, some subsegmental atelectasis/scarring
-Pulmonology following and help appreciated
-on oral steroids, do slow taper.
2. Enterococcal bacteremia and UTI
-Likely from urinary source although patient does not have any significant dysuria
-Urine culture also growing Enterococcus faecalis
-Echocardiogram did not show any vegetation
-Repeat blood cs neg so far. continue f/u
-ID help appreciated
-continue on ampicillin
3. LUIS A - Improving
Nephrotic range proteinuria
-Renal/bladder ultrasound did not show any major structural changes
-Creatinine down today. monitor
-24-hour urine collection showing proteinuria with 4.2 g of protein
-UPEP/SPEP pending. complement normal. PR3/MPO ab neg.
-Nephrology following and help appreciated
4. Type 2 diabetes mellitus
Episode of hypoglycemia
-hypoglycemia episode Likely with Glyburide use and luis a
-Maintain on insulin sliding scale, blood sugar to be expected somewhat uncontrolled with steroid need
5. HF ruled out
-Echocardiogram showing preserved ejection fraction. No signs of significant diastolic dysfunction.
6. Essential HTN - Uncontrolled
-Currently on regimen of sotalol/losartan/terazosin
-change Norvasc to Procardia
-As needed hydralazine ordered
DVT PPX - heparin sq
Code status - full code
Anticipated Discharge: 24 - 48 hours
Subjective/Interval History
-
Date of Service: May 08, 2024
remains on NC
no other issues ovenright
Objective Data
-
Labs:
Laboratory Results
05/08/24
06:12
Sodium 141
Potassium 4.0
Chloride 104
Carbon Dioxide 28
BUN 56 H
Creatinine 2.2 H
Glucose 151 H
Calcium 9.0
Vital Signs:
Vital Signs
Temp Pulse Resp BP Pulse Ox
97.7 F 87 18 153/97 95
05/08/24 11:00 05/08/24 11:00 05/08/24 11:00 05/08/24 11:00 05/08/24 11:00
I&O
05/07/24 05/08/24 05/09/24
06:59 06:59 06:59
Intake Total 560 / 560 2520 / 2520
Output Total 1075 / 1075 1200 / 1200
Balance -515 / -515 1320 / 1320
Review of Systems
-
Respiratory: Reports No Symptoms
Cardiac: Reports No Symptoms
Abdomen/GI: Reports No Symptoms
Physical Exam
-
General: No Apparent Distress and Comfortable
HEENT: Oxygen
Respiratory: Wheezes
Cardiac: Regular Rhythm and S1/S2; Negative Murmur or Rub
GI: Soft, Nontender and Nondistended
Musculoskeletal: No Edema
Neuro: Awake, Alert, Oriented, No Motor Deficits and Nonfocal/Grossly Intact
Psych: Calm
--- NOTE | 2024-05-08 12:43 | CM ---
[facility] has a bed available if patient is discharged tomorrow. CM will follow up in AM
--- NOTE | 2024-05-08 13:24 | W.PN.ID1 ---
Date of Service
Date of Service: May 08, 2024
Today's Communication
- start ciprofloxacin 500 mg PO qday, for two week course 05/04-05/17
- last QTc 473
- recheck QTc in the AM
Assessment / Plan
E faecalis Bacteremia
E faecalis UTI
COPD exacerbation
LUIS A
DM2 - well controlled
- blood cultures x2 no growth to date
- urine culture 100K E faecalis - likely source of bacteremia; UA not consistent with glomerulonephritis to suggest endocarditis
- TTE no vegetations 05/03 after bacteremia began
- start ciprofloxacin 500 mg PO qday, for two week course 05/04-05/17
- last QTc 473
- recheck QTc in the AM
- will follow cultures are clinically
Chief Complaint
-: Bacteremia
Subjective / Review of Systems
afebrile
bp stable to hypertensive
in good spirits
no new joints pain
Vital Signs / Physical Exam
Vital Signs
Vital Signs
Temp Pulse Resp BP Pulse Ox
97.7 F 87 18 153/97 95
05/08/24 11:00 05/08/24 11:00 05/08/24 11:00 05/08/24 11:00 05/08/24 11:00
Physical Exam
Constitutional: No Acute Distress
Cardiovascular: Regular Rate and S1/S2; Negative Murmur or Rub
Pulmonary: Clear and Symmetric; Negative Wheezes or Rales
Gastrointestinal: Soft, Non Tender, Non Distended and Normal Bowel Sounds
Skin: Warm and Dry; Negative Rash or Jaundice
Objective Data
Lab Data
Lab Results
05/06/24 05:31
05/08/24 06:12
Estimated Creat Clear 26 ml/min 05/08/24 06:12
Lactic Acid Cancelled 05/03/24 03:00
Total Bilirubin 1.3 mg/dl (0.2-1.3) 05/02/24 22:09
AST 23 U/L (17-59) 05/02/24 22:09
ALT 21 U/L (0-50) 05/02/24 22:09
Alkaline Phosphatase 76 U/L (38-126) 05/02/24 22:09
Most recent labs reviewed.
Micro Results:
05/06/24 13:13 Blood Culture - Preliminary
Blood/Venous No Growth in 48 hours- Final report to follow
05/06/24 05:31 Blood Culture - Preliminary
Blood/Venous No Growth in 48 hours- Final report to follow
05/03/24 02:52 Urine Culture - Final
Urine Enterococcus faecalis
05/02/24 23:21 Blood Culture - Final
Blood/Venous Enterococcus faecalis
Gram Stain - Final
05/02/24 23:21 Blood Culture - Final
Blood/Venous Enterococcus faecalis
Gram Stain - Final
05/02/24 23:21 Influenza Types A & B (THIERRY) - Final
Nasal Swab Negative for Influenza A & B, NAAT
Negative results must be combined with clinical observations
and patient history.
Nucleic Acid Amplification test (NAAT)performed on the
[employer] platform.
[2024-05-08] MEDS: NOVOLOG FLEXPEN-MODERATE RESISTANCE 3 UNITS SC (13:28)
[2024-05-08] MEDS: CIPRO 500 MG PO (14:13)
[2024-05-08 17:07] LABS: Glucose - Point of Care 170 mg/dl (70-99)
[2024-05-08 18:29] LABS: 24 Hour Urine Total Volume 1100 mL; Ur Free Lambda Excretion/day 108.93 mg/d; Urine Collection Length 24 hr; Urine Free Kappa Excretion/Day 304.16 mg/d; Urine Free Kappa Light Chains 276.51 mg/L (0.00-32.90); Urine Free Lambda Light Chains 99.03 mg/L (0.00-3.79)
[2024-05-08] MEDS: NOVOLOG FLEXPEN-MODERATE RESISTANCE 1 UNITS SC (18:35)
[2024-05-08] MEDS: APRESOLINE 10 MG IV (20:04)
[2024-05-08 21:20] LABS: Glucose - Point of Care 271 mg/dl (70-99)
[2024-05-08] MEDS: ASPIR LOW (ENTERIC COATED) 81 MG PO (22:33)
[2024-05-08] MEDS: CYMBALTA DELAYED RELEASE 30 MG PO (22:33)
[2024-05-08] MEDS: HYTRIN 5 MG PO (22:33)
[2024-05-08] MEDS: LIPITOR 20 MG PO (22:34)
[2024-05-09 03:00] VITALS: BP 145/82
[2024-05-09 05:56] VITALS: BMI 31.3
[2024-05-09 06:55] LABS: Blood Urea Nitrogen 55 mg/dl (9-20); Calcium 8.7 mg/dl (8.4-10.2); Carbon Dioxide 29 mmol/L (22-30); Chloride 105 mmol/L (98-107); Estimated Creatinine Clearance 30 ml/min; Glucose 146 mg/dl (70-99); Sodium 141 mmol/L (135-145); eGFR 33.72
[2024-05-09] MEDS: PULMICORT 0.5 MG INH (07:16)
[2024-05-09] MEDS: DUONEB 3 ML INH (07:16)
[2024-05-09] MEDS: BETAPACE 120 MG PO (07:34)
[2024-05-09] MEDS: MUCINEX 600 MG PO (07:34)
[2024-05-09] MEDS: MIRALAX 17 GRAMS PO (07:35)
[2024-05-09] MEDS: COZAAR 25 MG PO (07:35)
[2024-05-09] MEDS: DELTASONE 40 MG PO (07:35)
[2024-05-09] MEDS: PROCARDIA XL (EXTENDED RELEASE) 30 MG PO (07:35)
[2024-05-09] MEDS: HEPARIN 5000 UNITS SC (07:35)
[2024-05-09 07:58] VITALS: BP 155/95
[2024-05-09] MEDS: NOVOLOG FLEXPEN-MODERATE RESISTANCE SC (09:03)
[2024-05-09 09:09] LABS: Glucose - Point of Care 137 mg/dl (70-99)
[2024-05-09] MEDS: NOVOLOG FLEXPEN 3 UNITS SC ×2 (09:09→12:48)
[2024-05-09 10:59] VITALS: BP 139/68
[2024-05-09 11:10] VITALS: BP 159/73; PULSE 122; PULSE 59; O2SAT 95
[2024-05-09 11:17] VITALS: BP 159/73; PULSE 75; O2SAT 96
--- NOTE | 2024-05-09 11:17 | W.PN.NEPH.PH ---
Today's Communication / Plan
-
Stable renal function okay for discharge from renal standpoint discussed with the daughter via telephone
Assessment/Plan
-
IMP:
Acute bronchitis suspected with COPD exacerbation
Possible CHF
LUIS A with CKD 3-follows with the nephrology at [facility] Dr Siddiqi (creatinine 1.5 11/17)
Mild hyperkalemia
Non gap met acidosis
UTI
h/o bph
HTN
DM II
Plan:
A/w fall, noted acute bronchitis and +/-CHF
LUIS A-last cr was at 1.2 in 2021, no recent labs available, cr peak at 3.3, now down to 2.2 with nonoliguric
UA -UTI sample,borderline left hydro on renal US may need to repeat later
follow bladder scan with h/o BPH, bladder scan 99cc
Urine lab shows significant proteinuria unable to calculate, 24-hour urine protein 4grams , serologies, paraprotein workup
I do not favor following a kidney biopsy at this time, his ultrasound shows chronically damaged kidneys the likelihood of biopsy being helpful is extremely low, as his serologies are negative
We can reinitiate aspirin
avoid nephrotoxins , dose meds renally -holding metformin and ARB
k normal, cont to hold potassium supplements
await records from his nephrology group, still not here
Tolerating cozaar 25mg (usually on 100mg),bp now improved
Pt on Sotalol with a history of heart arrhythmia, cardiology at [facility]
mild metabolic acidosis resolved
echo normal EF though his BNP is elevated with LUIS A, will likely eventually require diuretic , however weights and volume status appears to be stable
Renal function stable okay for discharge from a renal standpoint
-
-
Date of Service: May 09, 2024
CC / HPI / ROS
-
Chief Complaint:
LUIS A
History of Present Illness:
cr down to 2.2
BP stable
Review of Systems:
No chest pain or shortness of breath at rest. No nausea or vomiting, denies any dysuria
Labs
-
Labs:
WBC 9.6 10^3/uL (4.8-10.8) 05/06/24 05:31
RBC 4.56 10^6/uL (4.70-6.10) L 05/06/24 05:31
Hgb 12.7 g/dL (13.0-18.0) L 05/06/24 05:31
Hct 38.8 % (39.0-52.0) L 05/06/24 05:31
Plt Count 188 10^3/uL (130-400) 05/06/24 05:31
Sodium 141 mmol/L (135-145) 05/09/24 06:08
Potassium 4.0 mmol/L (3.5-5.1) 05/09/24 06:08
Chloride 105 mmol/L (98-107) 05/09/24 06:08
Carbon Dioxide 29 mmol/L (22-30) 05/09/24 06:08
BUN 55 mg/dl (9-20) H 05/09/24 06:08
Creatinine 1.9 mg/dL (0.7-1.3) H 05/09/24 06:08
eGFR 33.72 05/09/24 06:08
Glucose 146 mg/dl (70-99) H 05/09/24 06:08
Calcium 8.7 mg/dl (8.4-10.2) 05/09/24 06:08
Qjy-I-Glpeafcrdka Pept 4540 pg/ml 05/02/24 22:09
Albumin 3.8 g/dl (3.5-5.0) 05/02/24 22:09
Physical Exam
-
Vital Signs:
Vital Signs
Temp Pulse Resp BP Pulse Ox
98.0 F 80 17 139/68 97
05/09/24 10:59 05/09/24 10:59 05/09/24 10:59 05/09/24 10:59 05/09/24 10:59
Cardiovascular:: Regular rate and rhythm
Respiratory:: Bilateral: CTA
Lung Excursion:: Normal
Abdomen:: Nontender and Soft
Extremity Edema:: None: Bilateral:
Cole Catheter: No
[2024-05-09 11:26] LABS: COVID-19 Antigen Negative (Negative)
[2024-05-09 11:37] LABS: Glucose - Point of Care 209 mg/dl (70-99)
--- NOTE | 2024-05-09 12:41 | CM ---
Patient medically cleared for discharge.
Spoke with Kerry in admissions at [facility] who stated that she can accept patient today. # For report [phone] and fax# [phone].
Met with patient and his who were agreeable to discharge. Provided number to transportation to have patient's call for payment.
Patient's signed IMM. It is now on chart.
RN updated.
Plan: Case management will continue to follow and assist with discharge planning. [facility]. Discharge today by w/madisyn boswell.
[2024-05-09] MEDS: NOVOLOG FLEXPEN-MODERATE RESISTANCE 3 UNITS SC (12:48)
--- NOTE | 2024-05-09 12:56 | W.PN.HOSP.TC ---
Today's Communication/Plan
-
dc to SNF; await ID recs on final Abx selection
Assessment / Plan
Assessment / Plan
Assessment:
COPD exacerbation
Acute hypoxic respite insufficiency
- Chest x-ray showing cardiomegaly without evidence of pulmonary edema, some subsegmental atelectasis/scarring
- Pulmonology following and help appreciated
- on oral steroids, do slow taper.
- on RA
Enterococcal bacteremia and UTI
- Likely from urinary source although patient does not have any significant dysuria
- Urine culture also growing Enterococcus faecalis
- Echocardiogram did not show any vegetation
- Repeat blood cs neg so far. continue f/u
- on Cipro; QTC 514, will d/w ID on alternative options
LUIS A - Improving
Nephrotic range proteinuria
- Renal/bladder ultrasound did not show any major structural changes
- Creatinine down today. monitor
- 24-hour urine collection showing proteinuria with 4.2 g of protein
- UPEP/SPEP pending. complement normal. PR3/MPO ab neg.
- Nephrology following and help appreciated
type 2 diabetes mellitus
Episode of hypoglycemia
- stop Glyburide
- resume Metformin
- Maintain on insulin sliding scale, blood sugar to be expected somewhat uncontrolled with steroid need
HF ruled out
- Echocardiogram showing preserved ejection fraction. No signs of significant diastolic dysfunction.
Essential HTN - Uncontrolled
- Currently on regimen of sotalol/losartan/terazosin
- change Norvasc to Procardia
- As needed hydralazine ordered
DVT ppx: SC heparin
Code: Full
Anticipated Discharge: Today
Subjective/Interval History
-
Date of Service: May 09, 2024
no new complaints presently
Objective Data
-
Labs:
Laboratory Results
05/09/24
06:08
Sodium 141
Potassium 4.0
Chloride 105
Carbon Dioxide 29
BUN 55 H
Creatinine 1.9 H
Glucose 146 H
Calcium 8.7
Vital Signs:
Vital Signs
Temp Pulse Resp BP Pulse Ox
98.0 F 80 17 139/68 97
05/09/24 10:59 05/09/24 10:59 05/09/24 10:59 05/09/24 10:59 05/09/24 10:59
I&O
05/08/24 05/09/24 05/10/24
06:59 06:59 06:59
Intake Total 2520 / 2520 1979 / 1979
Output Total 1200 / 1200 1000 / 1000
Balance 1320 / 1320 980 / 980
Physical Exam
-
General: No Apparent Distress
HEENT: Normocephalic and Atraumatic
Respiratory: Negative Wheezes
Cardiac: Irregular Rhythm
GI: Soft and Nontender
Genito-urinary: No Costovertebral Tender
Musculoskeletal: No Edema
Neuro: AO x 3
Psych: Calm
Data Reviewed
-
Total Time Spent with Patient (in minutes): 41
Labs: Labs Reviewed by me
[2024-05-09] MEDS: CIPRO 500 MG PO (13:02)
--- NOTE | 2024-05-09 13:10 | W.DS.TRANS ---
DC Summary - Charge Lpn
-
Discharge Instructions:
Discharge Diagnosis/Procedures COPD exacerbation
Enterococcus UTI with bacteremia
LUIS A
Diet Restrict fluids to 64 oz,Diabetic, Carb
Controlled
Additional Diets 2 gram potassium restriction
Activity As tolerated
Other Services PT,OT
Instructions:
Stand-Alone Forms:
Changes to Home Medications: Yes
Discharge Medications:
DC Medications w/original date entered in [employer]
aspirin 81 mg tablet,delayed release 81 mg PO HS Blood Clot Prevention/Tx 08/26/21
cholecalciferol (vitamin D3) 50 mcg (2,000 unit) tablet (Vitamin D3) 50 mcg PO DAILY Supplement 08/26/21
duloxetine 30 mg capsule,delayed release 30 mg PO HS Mental Health/Anxiety 08/26/21
omeprazole 20 mg capsule,delayed release 20 mg PO DAILY Gastrointestinal Issue 08/26/21
sotalol 120 mg tablet 120 mg PO BID Arrhythmia 08/26/21
terazosin 5 mg capsule 5 mg PO HS Blood Pressure 08/26/21
atorvastatin 20 mg tablet 20 mg PO HS High Cholesterol 05/02/24
omega 6-nmu-ovc-fish oil 1,200 mg (144 mg-216 mg) capsule (Fish Oil) 1 cap PO HS Supplement 05/02/24
temazepam 30 mg capsule 30 mg PO HSPRN PRN anxiety/sleep 05/02/24
vitamins A,C,D-ctum-ifwleh 4,296 mcg-226 mg-90 mg capsule (PreserVision AREDS) 1 cap PO BID Supplement 05/02/24
acetaminophen 325 mg tablet 650 mg (2 x 325 mg) PO Q4HPRN PRN mild pain or temp >/= 100.4 F #100 tabs 05/09/24
alprazolam 1 mg tablet 1 mg PO HSPRN PRN anxiety/sleep #3 tabs 05/09/24
budesonide 0.5 mg/2 mL suspension for nebulization 0.5 mg (2 mL) inhalation R BID #60 mL 05/09/24
guaifenesin 100 mg/5 mL oral liquid 200 mg (10 mL) PO Q4HPRN PRN cough #120 mL 05/09/24
guaifenesin 600 mg tablet, extended release 12 hr 600 mg PO Q12 #30 tabs 05/09/24
insulin aspart U-100 100 unit/mL (3 mL) subcutaneous pen 3 unit (0.03 mL) SC AC #15 mL 05/09/24
ipratropium 0.5 mg-albuterol 3 mg (2.5 mg base)/3 mL nebulization soln 3 ml inhalation R Q4HPRN PRN shortness of breath/wheezing #90 mL 05/09/24
losartan 25 mg tablet 25 mg PO DAILY #30 tabs 05/09/24
nifedipine 30 mg tablet,extended release 30 mg PO BID #60 tabs 05/09/24
prednisone 10 mg tablet 10 mg PO DIRECTED #20 tabs 05/09/24
sotalol 120 mg tablet 120 mg PO DAILY #30 tabs 05/09/24
Home Medication Changes
Sotalol to daily from BID dosing due to renal function. Losartan to 25 (from 100mg). Nifedipine in favor of Amlodipine. Insulin started, stop oral diabetes meds.
Pending Results: No
Total time spent discharging patient (in min): 41
--- NOTE | 2024-05-09 15:22 | W.PN.ID1 ---
Date of Service
Date of Service: May 09, 2024
Today's Communication
- given long qtc switched to amoxicillin for two week course 05/04-05/17
- stable for dc from ID perspective
Assessment / Plan
E faecalis Bacteremia
E faecalis UTI
COPD exacerbation
LUIS A
DM2 - well controlled
- blood cultures x2 no growth to date
- urine culture 100K E faecalis
- TTE no vegetations 05/03 after bacteremia began
- given long qtc switched to amoxicillin for two week course 05/04-05/17
- stable for dc from ID perspective
Chief Complaint
-: Bacteremia
Subjective / Review of Systems
afebrile
bp stable
QTc now >500
no events overnight
Vital Signs / Physical Exam
Vital Signs
Vital Signs
Temp Pulse Resp BP Pulse Ox
98.0 F 80 17 139/68 97
05/09/24 10:59 05/09/24 10:59 05/09/24 10:59 05/09/24 10:59 05/09/24 10:59
Physical Exam
Constitutional: No Acute Distress
Cardiovascular: Regular Rate
Pulmonary: Symmetric and Non Labored
Gastrointestinal: Non Distended
Skin: Dry; Negative Rash or Jaundice
Neurological: Awake
Objective Data
Lab Data
Lab Results
05/06/24 05:31
05/09/24 06:08
Estimated Creat Clear 30 ml/min 05/09/24 06:08
Lactic Acid Cancelled 05/03/24 03:00
Total Bilirubin 1.3 mg/dl (0.2-1.3) 05/02/24 22:09
AST 23 U/L (17-59) 05/02/24 22:09
ALT 21 U/L (0-50) 05/02/24 22:09
Alkaline Phosphatase 76 U/L (38-126) 05/02/24 22:09
Most recent labs reviewed.
Micro Results:
05/06/24 13:13 Blood Culture - Preliminary
Blood/Venous No Growth in 72 hours- Final report to follow
05/06/24 05:31 Blood Culture - Preliminary
Blood/Venous No Growth in 72 hours- Final report to follow
05/03/24 02:52 Urine Culture - Final
Urine Enterococcus faecalis
05/02/24 23:21 Blood Culture - Final
Blood/Venous Enterococcus faecalis
Gram Stain - Final
05/02/24 23:21 Blood Culture - Final
Blood/Venous Enterococcus faecalis
Gram Stain - Final
05/02/24 23:21 Influenza Types A & B (THIERRY) - Final
Nasal Swab Negative for Influenza A & B, NAAT
Negative results must be combined with clinical observations
and patient history.
Nucleic Acid Amplification test (NAAT)performed on the
[employer] platform.
Care Review
Plan reviewed with: Physician (Dr Qureshi - froy)
[2024-05-09 15:25] VITALS: BP 156/89
[2024-05-10 00:20] LABS: Albumin 2.95 g/dL (3.75-5.01); Alpha 1 Globulin 0.44 g/dL (0.19-0.46); Alpha 2 Globulin 1.22 g/dL (0.48-1.05); SPEP IFE Reflex Not Done; Total Protein-Electrophoresis 6.3 g/dL (6.3-8.2)
== END 2024-05-09 16:56 | DRG 872 ==
LOC: 3 WEST ACU 02:17
PROVIDERS: Emergency Medicine; Hospitalist; Specialist; ADMITTING PHYSICIAN Internal Medicine; ATTENDING PHYSICIAN Internal Medicine; CONSULT PHYSICIAN Student in an Organized Health Care Education/Training Program; EMERGENCY PHYSICIAN Student in an Organized Health Care Education/Training Program; FAMILY PHYSICIAN Internal Medicine; OTHER PHYSICIAN Internal Medicine; OTHER PHYSICIAN Internal Medicine Critical Care Medicine
DX: A41.81 Sepsis due to Enterococcus (principal); N17.9 Acute kidney failure, unspecified; J44.1 Chronic obstructive pulmonary disease with (acute) exacerbation; J44.0 Chronic obstructive pulmonary disease with (acute) lower respiratory infection; I12.9 Hypertensive chronic kidney disease with stage 1 through stage 4 chronic kidney disease, or unspecified chronic kidney disease; E87.20 Acidosis, unspecified; N39.0 Urinary tract infection, site not specified; Z16.29 Resistance to other single specified antibiotic; N18.30 Chronic kidney disease, stage 3 unspecified; E87.5 Hyperkalemia; J20.9 Acute bronchitis, unspecified; E78.00 Pure hypercholesterolemia, unspecified; E11.22 Type 2 diabetes mellitus with diabetic chronic kidney disease; E11.65 Type 2 diabetes mellitus with hyperglycemia; E66.9 Obesity, unspecified; N40.0 Benign prostatic hyperplasia without lower urinary tract symptoms; R09.02 Hypoxemia; Z68.32 Body mass index [BMI] 32.0-32.9, adult; Z87.891 Personal history of nicotine dependence; Z79.82 Long term (current) use of aspirin; Z79.84 Long term (current) use of oral hypoglycemic drugs; Z79.899 Other long term (current) drug therapy; Z86.718 Personal history of other venous thrombosis and embolism; Z11.52 Encounter for screening for COVID-19
CPT/HCPCS: 71046; 76775; 80048; 80053; 81003; 81015; 81050; 82570; 82805; 82962; 83036; 83516; 83521; 83605; 83880; 84145; 84155; 84156; 84165; 84300; 84484; 85025; 85027; 86038; 86160; 86335; 87040; 87077; 87086; 87186; 87205; 87502; 87811; 93005; 93306; 94640; 94660; 96361; 96374; 96375; 97116; 97163; 97166; 97530; 99285